=== PATIENT | male | born 1970 | race Caucasian/White ===

== ENCOUNTER 2018-04-19 16:31 | Observation (INO) | payer MEDICAID, OTHER ==
[2018-04-19] MEDS ORDERED: ONDANSETRON 4 MG/2 ML VIAL IVP ONE (16:32)
[2018-04-19] MEDS ORDERED: NS 1,000 ML IV ONE ×4 (16:32→22:16)
--- NOTE | 2018-04-19 16:49 | EDPHY ---
H & P Stated Complaint: PALACIOS, body aches, N/V/D, out of long term x 2 days ago, used meth yesterday Time Seen by Provider: 04/19/18 16:32 HPI/ROS: CHIEF COMPLAINT: Nausea, vomiting, diarrhea HISTORY OF PRESENT ILLNESS: This is a 47-year-old insulin-dependent diabetic who was released from long term 2 days ago. Since his release he has had persistent nausea, vomiting, and one bout of diarrhea. He has continued to use his insulin , in smaller doses. He tells me that he has been unable to keep much of anything down. He has some diffuse abdominal pain. He has had shaking chills and thinks that he might have had fever at home. He describes diffuse muscle aches. He has had an occasional cough over the past week, nothing persistent. He does not have sore throat. He does not feel short of breath. He is not experiencing chest pain. He has been hospitalized in the past with diabetic ketoacidosis. He denies use of IV drugs. He did use methamphetamine yesterday. REVIEW OF SYSTEMS: A ten system review of systems was performed and is negative with the exception of the items mentioned in the HPI. Past medical history: Insulin-dependent diabetes Substance abuse Past surgical history: Negative Social history: He was recently released from long term. He is currently living in an . He is accompanied by his girlfriend today. General Appearance: Alert. Vital signs reviewed. Blood pressure 146/93, heart rate 125 at triage. He intermittently falls asleep but is easily awakened and when awake he is alert and appropriate. Eyes: Pupils equal and round, bilateral conjunctival injection, no discharge. Anicteric. ENT, Mouth: Mucous membranes are slightly dry, no oropharyngeal erythema or edema. Neck: No lymphadenopathy, supple. Respiratory: Lungs are clear to auscultation; no wheezes, rales, or rhonchi. Cardiovascular: Tachycardic; no murmur, rub, or gallop. Gastrointestinal: Abdomen is soft and mildly diffusely tender, no masses or organomegaly, bowel sounds normal. Bruising on the abdomen. Skin: Warm and dry, no rashes on exposed skin, normal color. Multiple tattoos. Back: Nontender to palpation over the thoracolumbar spine. No CVAT. Extremities: No lower extremity edema, no calf tenderness or swelling. Neurological: Alert and oriented. Moving all four extremities easily and equally. Psychiatric: No agitation. Tearful during my interview. - Personal History Current Tetanus Diphtheria and Acellular Pertussis (TDAP): Yes - Medical/Surgical History Hx Asthma: No Hx Chronic Respiratory Disease: No Hx Diabetes: Yes Hx Cardiac Disease: No Hx Renal Disease: No Hx Cirrhosis: No Hx Alcoholism: No Hx HIV/AIDS: No Hx Splenectomy or Spleen Trauma: No Other PMH: Diabetic - Social History Smoking Status: Smoker current status UNK Constitutional: Initial Vital Signs Temperature (C) 37.1 C 04/19/18 16:35 Heart Rate 125 H 04/19/18 16:35 Respiratory Rate 18 04/19/18 16:35 Blood Pressure 146/93 H 04/19/18 16:35 O2 Sat (%) 96 04/19/18 16:35 O2 Delivery Mode Room Air Allergies/Adverse Reactions: No Known Allergies Allergy (Unverified 09/03/12 12:04) Home Medications: Medication Instructions Recorded Insulin Detemir [Levemir] 30 - 40 unit SQ BID 04/19/18 Insulin Lispro [Humalog] 10 - 25 units SQ TIDMEAL 04/19/18 metFORMIN HCL [Glucophage 1000 mg] 1,000 mg PO BIDMEAL 04/19/18 Medical Decision Making ED Course/Re-evaluation: 47-year-old insulin-dependent diabetic with nausea, vomiting, and diarrhea. Initial blood sugar here is 244. He has an anion gap with an elevated beta hydroxybutyrate. In the emergency department he received 2 L of IV fluid with subsequent blood sugar of 252. At this point it is unclear whether this is an early ketoacidosis or whether his vomiting and diarrhea is a GI illness, viral or bacterial. White blood cell count is elevated, just over 15,000. He is not febrile. He does not meet sepsis criteria. He has not had vomiting in the department, nor has he had diarrhea. I do not feel that he can return home until he is able to eat and drink normally and control his blood sugars. There may also be an element of withdrawal. He tells me that his only recent drug use has been methamphetamine, yesterday. He does appear to be under the influence of something. There appear to be several psychosocial issues. He and his girlfriend are quite concerned that they might lose the RV that they own and are living in. Case management was involved. Differential Diagnosis: Considered a differential diagnosis that includes but is not limited to diabetic ketoacidosis, gastroenteritis, pancreatitis, gastritis, polysubstance abuse, drug withdrawal. - Data Points Laboratory Results: Laboratory Results 04/19/18 17:20 04/19/18 17:20 04/19/18 04/19/18 04/19/18 17:45 17:20 17:20 WBC RBC Hgb POC Hgb 17.0 gm/dL gm/dL (13.7-17.5) Hct POC Hct 50 % % (40-51) MCV MCH MCHC RDW Plt Count MPV Neut % (Auto) Lymph % (Auto) Ellis % (Auto) Eos % (Auto) Baso % (Auto) Nucleat RBC Rel Count Absolute Neuts (auto) Absolute Lymphs (auto) Absolute Monos (auto) Absolute Eos (auto) Absolute Basos (auto) Absolute Nucleated RBC Immature Gran % Immature Gran # POC Sodium 139 mEq/L mEq/L (135-145) Sodium 136 mEq/L mEq/L (135-145) POC Potassium 4.1 mEq/L mEq/L (3.3-5.0) Potassium 4.6 mEq/L mEq/L (3.3-5.0) POC Chloride 99 mEq/L mEq/L (97-110) Chloride 97 mEq/L mEq/L (97-110) Carbon Dioxide 19 mEq/l L mEq/l (22-31) Anion Gap 20 mEq/L H mEq/L (8-16) POC BUN 35 mg/dL H mg/dL (7-23) BUN 36 mg/dL H mg/dL (7-23) Creatinine 0.9 mg/dL mg/dL (0.7-1.3) POC Creatinine 0.8 mg/dL mg/dL (0.7-1.3) Estimated GFR > 60 Glucose 240 mg/dL H mg/dL (70-100) POC Glucose 244 mg/dL H mg/dL (70-100) Calcium 11.9 mg/dL H mg/dL (8.5-10.4) Phosphorus 4.3 mg/dL mg/dL (2.5-4.5) Beta-Hydroxybutyrate 5.87 mmol/L H mmol/L (0.02-0.27) 04/19/18 17:20 WBC 15.93 10^3/uL H 10^3/uL (3.80-9.50) RBC 5.60 10^6/uL 10^6/uL (4.40-6.38) Hgb 16.2 g/dL g/dL (13.7-17.5) POC Hgb Hct 47.1 % % (40.0-51.0) POC Hct MCV 84.1 fL fL (81.5-99.8) MCH 28.9 pg pg (27.9-34.1) MCHC 34.4 g/dL g/dL (32.4-36.7) RDW 13.1 % % (11.5-15.2) Plt Count 335 10^3/uL 10^3/uL (150-400) MPV 9.0 fL fL (8.7-11.7) Neut % (Auto) 78.4 % H % (39.3-74.2) Lymph % (Auto) 12.6 % L % (15.0-45.0) Ellis % (Auto) 8.1 % % (4.5-13.0) Eos % (Auto) 0.0 % L % (0.6-7.6) Baso % (Auto) 0.3 % % (0.3-1.7) Nucleat RBC Rel Count 0.0 % % (0.0-0.2) Absolute Neuts (auto) 12.51 10^3/uL H 10^3/uL (1.70-6.50) Absolute Lymphs (auto) 2.00 10^3/uL 10^3/uL (1.00-3.00) Absolute Monos (auto) 1.29 10^3/uL H 10^3/uL (0.30-0.80) Absolute Eos (auto) 0.00 10^3/uL L 10^3/uL (0.03-0.40) Absolute Basos (auto) 0.04 10^3/uL 10^3/uL (0.02-0.10) Absolute Nucleated RBC 0.00 10^3/uL 10^3/uL (0-0.01) Immature Gran % 0.6 % % (0.0-1.1) Immature Gran # 0.09 10^3/uL 10^3/uL (0.00-0.10) POC Sodium Sodium POC Potassium Potassium POC Chloride Chloride Carbon Dioxide Anion Gap POC BUN BUN Creatinine POC Creatinine Estimated GFR Glucose POC Glucose Calcium Phosphorus Beta-Hydroxybutyrate Medications Given: Insulin Glargine (Lantus Syringe) 20 units SC HS JD Stop: 10/16/18 20:59 Last Admin: 04/19/18 22:08 Dose: 20 units Discontinued Medications Sodium Chloride (Ns) 1,000 mls @ 0 mls/hr IV EDNOW ONE; Wide Open PRN Reason: Protocol Stop: 04/19/18 16:33 Last Admin: 04/19/18 16:40 Dose: 1,000 mls Sodium Chloride (Ns) 1,000 mls @ 0 mls/hr IV ONCE ONE PRN Reason: Wide Open Stop: 04/19/18 17:56 Last Admin: 04/19/18 17:57 Dose: 1,000 mls Sodium Chloride (Ns) 1,000 mls @ 0 mls/hr IV EDNOW ONE; Wide Open PRN Reason: Protocol Stop: 04/19/18 19:14 Last Admin: 04/19/18 19:30 Dose: 1,000 mls Sodium Chloride (Ns) 1,000 mls @ 0 mls/hr IV ONCE ONE PRN Reason: Wide Open Stop: 04/19/18 22:17 Last Admin: 04/19/18 22:21 Dose: 1,000 mls Ondansetron HCl (Zofran) 4 mg IVP EDNOW ONE Stop: 04/19/18 16:33 Last Admin: 04/19/18 17:48 Dose: Not Given Point of Care Test Results: Chemistry 04/19/18 17:45 POC Sodium 139 mEq/L mEq/L (135-145) POC Potassium 4.1 mEq/L mEq/L (3.3-5.0) POC Chloride 99 mEq/L mEq/L (97-110) POC BUN 35 mg/dL H mg/dL (7-23) POC Creatinine 0.8 mg/dL mg/dL (0.7-1.3) POC Glucose 244 mg/dL H mg/dL (70-100) ISTAT H&H 04/19/18 17:45 POC Hgb 17.0 gm/dL gm/dL (13.7-17.5) POC Hct 50 % % (40-51) Departure - Departure Disposition: [facility] Acute Clinical Impression: Vomiting, Hyperglycemia due to type 1 diabetes mellitus Condition: Fair
[2018-04-19 17:35] LABS: PLATELET COUNT 335 10^3/uL (150-400)
--- NOTE | 2018-04-19 17:56 | ASMTCMCOM ---
CM Note CM Note Notes: This CM met with patient and his girlfriend Nuris shortly after patient's arrival to the ED. Per Dr. Rick, Nuris had expressed concerns about their RV and its current location. I provided Nuris with the phone number for [facility] and encouraged her to contact dispatch regarding the current location of their vehicle and to stay in communication with them as they are working toward having it repaired/moved. Nuris explains that patient was just released from [facility] Term 2 days ago and that they are homeless and have been living in their RV. I have discussed resources for them including [facility], [facility] shelters, and the [facility]. Both patient and Nuris deny any alcohol or drug use other than "we did a little meth yesterday". Both patient and Nuris are very pleasant. Patient is sleepy but oriented and conversant when awake. Nuris appears restless and has some "fidgety" movements of her head and jaw. She admits to having a substance abuse issue in the past but insists that "other than a little meth yesterday", she has not been using any drugs or alcohol. I have provided patient and Nuris with detailed information about the [facility], [facility], as well as [facility]. Both patient and Nuris state that they are thinking of relocating to [facility] to be closer to family. I have encouraged them to reach out to friends/family if they need assistance with this goal. I have also encouraged them to look into [facility]/ for community CM services as well Date Signed: 04/19/2018 05:55 PM Electronically Signed By:Roma Engle RN
[2018-04-19] MEDS ORDERED: ONDANSETRON DISINTEGRATING 4 MG TAB PO PRN (20:42)
[2018-04-19] MEDS ORDERED: HYDROCODONE/APAP 5/325 TAB PO PRN (20:42)
[2018-04-19] MEDS ORDERED: LORazepam 0.5 MG TAB PO PRN (20:42)
[2018-04-19] MEDS ORDERED: PROMETHAZINE HCL 25 MG/ML INJ IVP PRN (20:42)
[2018-04-19] MEDS ORDERED: ACETAMINOPHEN 325 MG TAB PO PRN (20:42)
[2018-04-19] MEDS ORDERED: LORazepam 2 MG/ML INJ IVP PRN (20:42)
[2018-04-19] MEDS ORDERED: ONDANSETRON 4 MG/2 ML VIAL IVP PRN (20:42)
[2018-04-19] MEDS ORDERED: D50W 25 GM/50 ML VIAL IVP PRN (20:44)
[2018-04-19] MEDS ORDERED: INSULIN GLARGINE 100 UNITS/ML UNIT SC SCH (21:00)
--- NOTE | 2018-04-19 22:51 | GHP ---
DATE OF ADMISSION: 04/19/2018 CHIEF COMPLAINT: Nausea, vomiting. HISTORY: This is a 47-year-old, insulin-dependent male who was [facility] with complaints of persistent nausea, vomiting, and diarrhea over the last 24 hours. The patient notes that he has continued to use his usual insulin dose but despite that has continued to have per sistent nausea, vomiting. He is accompanied by his girlfriend who is very anxious and notes that the y are currently living in an RV and that there has been a lot of stress in their lives recently due t o his getting out of [facility] and concerns that the RV might get repossessed. The patient does admit to having recently used methamphetamine and has a history of IV drug use. At the time of my evaluation, he is somewhat somnolent and tangential and appears to be perhaps acutely intoxicated. PAST MEDICAL HISTORY: Includes: 1. Insulin-dependent diabetes. 2. Polysubstance abuse, including IV drug use. PAST SURGICAL HISTORY: Denies. SOCIAL HISTORY: Patient recently released from [facility]. He is currently living in an RV. He is accomp anied by his girlfriend. FAMILY HISTORY: This was reviewed and noncontributory. REVIEW OF SYSTEMS: 10-point review of systems obtained, negative except as per HPI. HOME MEDICATIONS: 1. Metformin. 2. Insulin lispro. 3. Insulin detemir. ALLERGIES: No known drug allergies. PHYSICAL EXAM: VITAL SIGNS: BP 144/81, heart rate 120, respiratory rate 16, O2 sats 94% on room air , temperature is 37.3. GENERAL APPEARANCE: This is a disheveled male. He is awake and alert. He i s in no acute distress. EYES: Anicteric. Pupils are pinpoint, equal, reactive. HEENT: Dry mucous membranes. CARDIOVASCULAR: Tachy, regular. No MRG. PULMONARY: CTA bilaterally. ABDOMEN: Soft, nontender. Positive bowel sounds. EXTREMITIES: No clubbing, cyanosis, or edema. SKIN: Warm, dry , well perfused. NEURO/PSYCH: Patient is somnolent but awake and alert. He is tangential and somew hat agitated intermittently, consistent with likely acute intoxication. CLINICAL DATA: Labs reviewed and notable for white blood cell count of 15.9, hematocrit of 47. Chem istry is notable for a bicarb of 15, anion gap of 18, BUN of 30, glucose of 211. He has a hemoglobin A1c of 9.9. ASSESSMENT/PLAN: This is a 47-year-old insulin-dependent man recently released from [facility], presenting with nausea, vomiting, diarrhea, and recent methamphetamine use and suspect acute intoxication. 1. Nausea, vomiting, diarrhea: Uncertain etiology. Query if this is related to drug use or a viral gastroenteritis. It does appear to be improving. Plan is to hydrate and to monitor overnight. Tessa uld diarrhea recur, we will send a gastrointestinal pathogen panel but suspect this is likely non inf ectious. 2. Hyperglycemia: He does have an elevated anion gap but no evidence at this point of diabetic keto acidosis. We will treat with intravenous fluids and insulin sliding scale and insulin glargine. We will recheck a basic metabolic profile to be sure his gap is closing. 3. Acute encephalopathy: Again, suspect this is related to acute intoxication. Patient does have i ntermittent agitation and somnolence consistent with intoxication. Does admit to recent meth use. D rug screen has been ordered and is pending. Will monitor overnight. 4. Observation status: Suspect patient will require less than 48-hour stay for evaluation and manag ement of above. 5. Patient is new to my care. Old records reviewed, summarized as per HPI and past medical history. Care plan reviewed with ER physician including plans for hydration and overnight observation. /[id number]/MODL
[2018-04-19] MEDS: NS 1,000 ML IV SCH (23:29)
[2018-04-20 06:12] LABS: PLATELET COUNT 300 10^3/uL (150-400)
[2018-04-20] MEDS: NS 1,000 ML IV SCH (08:55)
[2018-04-20] MEDS: INSULIN LISPRO 100 UNIT/ML SC SCH ×2 (10:46→11:34)
--- NOTE | 2018-04-20 13:01 | HOSPPROG ---
Hospitalist Progress Note Assessment/Plan: 47 yo M w dm here w likely viral gastroenteritis viral gastroenteritis: now tolerating orals no diarrhea ?dka: has NON GAP acidosis from saline resuscitation not tachypneic took long acting insulin last nando dispo: home today Subjective: ate breakfast and lunch Objective: Vital Signs Temp Pulse Resp BP Pulse Ox 36.7 C 101 H 16 135/59 H 94 04/20/18 12:00 04/20/18 12:00 04/20/18 12:00 04/20/18 12:00 04/20/18 12:00 Laboratory Results 04/20/18 05:43 04/20/18 05:43 04/19/18 04/20/18 04/21/18 05:59 05:59 05:59 Intake Total 1500 Output Total 1000 Balance 500 - Physical Exam Constitutional: no apparent distress, appears nourished Eyes: PERRL, anicteric sclera Ears, Nose, Mouth, Throat: moist mucous membranes, hearing normal Cardiovascular: regular rate and rhythym, no murmur, rub, or gallop, No tachycardia Respiratory: no respiratory distress, no rales or rhonchi Gastrointestinal: normoactive bowel sounds, soft, non-tender abdomen, No guarding, No rebound Genitourinary: No guzman in urethra Skin: warm, normal color Musculoskeletal: full muscle strength Neurologic: AAOx3 Psychiatric: interacting appropriately Lymph, Heme, Immunologic: no cervical LAD ICD10 Worksheet Patient Problems: Problems Problem Status Onset Hyperglycemia due to type 1 diabetes mellitus Acute Vomiting Acute
--- NOTE | 2018-04-20 13:29 | GDS ---
DISCHARGE DIAGNOSES: 1. Viral gastroenteritis. 2. Diabetes. 3. Nausea and vomiting. 4. Hyperglycemia. Please see admission history and physical by Dr. Aldair Fournier. The patient presented with nausea and vomiting, inability to tolerate p.o. He received IV fluids, IV antiemetics. With improvement in his symptoms, he did have a leukocytosis. He and his girlfriend attribute this to steve Stephenson gh it is worth noting that there is a viral infection going around. The patient did have an elevated beta hydroxybutyrate on presentation and a mild anion gap acidosis. This is felt more consistent with starvation ketosis than DKA. He did not receive IV insulin. His anion gap actually closed. He received long-acting insulin. He is not tachypneic. His bicarb is 16 this morning, and it is non gap secondary to saline resuscitatio n. The patient is discharged home, to continue his insulin therapy. He is given a prescription for Phen ergan. /[id number]/MODL
[2018-04-20 15:36] VITALS: BP 145/83
== END 2018-04-20 16:04 | disposition home or self-care (01) ==
LOC: EDUNIT# → F3E 20:08
PROVIDERS: ADMIT Internal Medicine; ATTEND Internal Medicine
DX: A08.4 Viral intestinal infection, unspecified (principal); E11.9 Type 2 diabetes mellitus without complications
CPT/HCPCS: 96360; 96361; 96372; 99285; G0378; 80307; 82435-PO; 82565-PO; 82947-PO; 84132-PO; 84295-PO; 84520-PO; 85014-PO; G0480; J1815

== ENCOUNTER 2018-04-22 00:12 | Inpatient (IN) | payer MEDICAID ==
--- NOTE | 2018-04-22 00:18 | EDPHY ---
H & P Time Seen by Provider: 04/22/18 00:18 HPI/ROS: HPI CHIEF COMPLAINT: Nausea vomiting. HISTORY OF PRESENT ILLNESS: Patient is a 47-year-old male, presents emergency room by EMS with nausea vomiting. Patient was recently admitted to the hospital for viral gastroenteritis. Patient presents back to the emergency room with nausea vomiting. He states he is unable to tolerate p.o.. Patient denies any chest pain or shortness of breath. He does complain of diffuse body pain. He states he has been unable to keep anything down.. Of note patient moaning. Refuses to answer most questions. History and review systems limited to this. Past Medical History: Diabetes, insulin-dependent recent admission for viral gastroenteritis, recent for admission for nausea vomiting Past Surgical History: Denies recent surgery Social History: Possible methamphetamine. Family History: Noncontributory. ROS REVIEW OF SYSTEMS: Of note patient moaning. Refuses to answer most questions. History review systems limited to this. Exam Constitutional nontoxic, moaning, triage nursing summary reviewed, vital signs reviewed, awake/alert. Eyes normal conjunctivae and sclera, EOMI, PERRLA. HENT normal inspection, atraumatic, moist mucus membranes, no epistaxis, neck supple/ no meningismus, no raccoon eyes. Respiratory clear to auscultation bilaterally, normal breath sounds, no respiratory distress, no wheezing. Cardiovascular rate normal, regular rhythm, no murmur, no edema, distal pulses normal. Gastrointestinal soft, non-tender, no rebound, no guarding, normal bowel sounds, no distension, no pulsatile mass. Genitourinary no CVA tenderness. Musculoskeletal no midline vertebral tenderness, full range of motion, no calf swelling, no tenderness of extremities, no meningismus, good pulses, neurovascularly intact. Skin pink, warm, & dry, no rash, skin atraumatic. Neurologic awake, alert and oriented x 3, AAOx3, moves all 4 extremities equally, motor intact, sensory intact, CN II-XII intact, normal cerebellar, normal vision, normal speech. Psychiatric normal mood/affect. Heme/Lymph/Immune no lymphadenopathy. Differential Diagnosis: Includes but is not limited to in a particular order dehydration, electrolyte disturbance, DKA, infection, bowel obstruction, viral gastroenteritis, electrolyte disturbance. Medical Decision Making: Plan for this patient IV establishment IV fluid bolus , full core piler EKG, troponin, abdominal blood work, Zofran for nausea and re-evaluate. Drug screen. Re-evaluation: EKG interpretation by me on record in IMVU system. Impression time of EKG 004, sinus tach 126, peaked T-waves present. Early re-mariluz pattern. Patient's lab results resulted. Patient is in DKA with a critical acidosis. Elevated blood glucose. Ketones in the urine. Patient started on the DKA protocol. Potassium noted. This should shift with insulin. Patient received 2 L of fluid here in emergency room. Chest x-ray and KUB pending. Hospitalist service consult for admission to the ICU. Dr. Mullins Accepts. Critical Care: Total Critical Care Time Spent Managing this Patient: 65 Minutes. This time was spent Exclusively with this patient. This Care was exclusive of procedures. The Organ System/life at risk was acidosis, DKA This Patient was in Critical Condition because DKA Source: Patient, EMS - Medical/Surgical History Hx Asthma: No Hx Chronic Respiratory Disease: No Hx Diabetes: Yes Hx Cardiac Disease: No Hx Renal Disease: No Hx Cirrhosis: No Hx Alcoholism: No Hx HIV/AIDS: No Hx Splenectomy or Spleen Trauma: No Other PMH: Diabetic - Social History Smoking Status: Smoker current status UNK Constitutional: Initial Vital Signs Temperature (C) 36.7 C 04/22/18 00:30 Heart Rate 125 H 04/22/18 00:30 Respiratory Rate 22 H 04/22/18 00:30 Blood Pressure 157/104 H 04/22/18 00:30 O2 Sat (%) 98 04/22/18 00:30 O2 Delivery Mode Room Air Allergies/Adverse Reactions: No Known Allergies Allergy (Unverified 04/22/18 00:29) Home Medications: Medication Instructions Recorded Insulin Detemir [Levemir] 30 - 40 unit SQ BID 04/19/18 Insulin Lispro [Humalog] 10 - 25 units SQ TIDMEAL 04/19/18 metFORMIN HCL [Glucophage 1000 mg] 1,000 mg PO BIDMEAL 04/19/18 Promethazine HCl [Phenergan 12.5mg 12.5 mg PO Q6 PRN #10 tablet 04/20/18 tab] Medical Decision Making - Data Points Laboratory Results: Laboratory Results 04/22/18 00:54 04/22/18 00:54 Medications Given: Enoxaparin Sodium (Lovenox) 40 mg SC DAILY JD Stop: 10/19/18 08:59 Last Admin: 04/22/18 11:24 Dose: 40 mg Insulin Human Regular 100 unit (/ Sodium Chloride) 101 mls @ 0 mls/hr IV AD JD ; Per Protocol PRN Reason: Protocol Stop: 10/19/18 01:59 Last Admin: 04/22/18 20:36 Dose: 101 mls Dextrose (D10w) 1,000 mls @ 0 mls/hr IV AD JD; Per Protocol PRN Reason: Protocol Stop: 10/19/18 01:59 Last Admin: 04/22/18 17:25 Dose: 1,000 mls Sodium Chloride (Ns) 1,000 mls @ 150 mls/hr IV CONT JD Stop: 10/19/18 10:14 Last Admin: 04/22/18 20:37 Dose: 1,000 mls Pantoprazole Sodium (Protonix) 40 mg IVP DAILY JD Stop: 10/19/18 14:44 Last Admin: 04/22/18 14:57 Dose: 40 mg Discontinued Medications Sodium Chloride (Ns) 1,000 mls @ 0 mls/hr IV EDNOW ONE; Wide Open PRN Reason: Protocol Stop: 04/22/18 00:24 Last Admin: 04/22/18 00:39 Dose: 1,000 mls Sodium Chloride (Ns) 1,000 mls @ 0 mls/hr IV ONCE ONE PRN Reason: Wide Open Stop: 04/22/18 01:13 Last Admin: 04/22/18 01:57 Dose: 1,000 mls Insulin Human Regular 100 unit / Miscellaneous Medication 1 ea/ Sodium Chloride 101 mls @ 0 mls/hr IV EDNOW ONE; Per Protocol PRN Reason: Protocol Stop: 04/22/18 01:26 Last Admin: 04/22/18 01:54 Dose: 101 mls Sodium Chloride (Ns) 1,000 mls @ 1,000 mls/hr IV ONCE ONE Stop: 04/22/18 02:59 Last Admin: 04/22/18 05:04 Dose: 1,000 mls Sodium Chloride (Ns) 500 mls @ 500 mls/hr IV ONCE ONE Stop: 04/22/18 03:59 Last Admin: 04/22/18 03:00 Dose: 500 mls Sodium Chloride (Ns) 500 mls @ 500 mls/hr IV ONCE ONE Stop: 04/22/18 04:59 Last Admin: 04/22/18 04:00 Dose: 500 mls Sodium Chloride (Ns) 1,000 mls @ 150 mls/hr IV CONT JD Stop: 10/19/18 04:14 Last Admin: 04/22/18 05:11 Dose: 1,000 mls Sodium Chloride (Ns) 1,000 mls @ 6,000 mls/hr IV ONCE ONE Stop: 04/22/18 14:37 Last Admin: 04/22/18 14:38 Dose: 1,000 mls Potassium Chloride (Potassium Cl 10 Meq (Premix)) 50 mls @ 100 mls/hr IV Q30M JD Stop: 04/22/18 21:14 Last Admin: 04/22/18 21:01 Dose: 50 mls Influenza Virus Vaccine Quadrival (Flulaval Quad [id number] (6mo+)) 0.5 ml IM .ONCE ONE Stop: 04/22/18 09:29 Last Admin: 04/22/18 12:32 Dose: Not Given Ondansetron HCl (Zofran) 4 mg IVP EDNOW ONE Stop: 04/22/18 00:25 Last Admin: 04/22/18 00:39 Dose: 4 mg Pneumococcal Polyvalent Vaccine (Pneumovax 23) 0.5 ml IM .ONCE ONE Stop: 04/22/18 09:29 Last Admin: 04/22/18 12:32 Dose: Not Given Point of Care Test Results: Chemistry 04/22/18 01:10 POC Troponin I 0.00 ng/mL ng/mL (0.00-0.08) Departure - Departure Disposition: [facility] Acute Clinical Impression: DKA (diabetic ketoacidoses) Qualifiers: Diabetes mellitus type: type 1 Diabetes mellitus complication detail: without coma Qualified Code(s): E10.10 - Type 1 diabetes mellitus with ketoacidosis without coma Condition: Critical
[2018-04-22] MEDS ORDERED: NS 1,000 ML IV ONE ×4 (00:23→14:28)
[2018-04-22] MEDS ORDERED: ONDANSETRON 4 MG/2 ML VIAL IVP ONE (00:24)
[2018-04-22 01:12] LABS: PLATELET COUNT 463 10^3/uL (150-400)
[2018-04-22 01:18] LABS: INR 1.21 (0.83-1.16); PROTIME(PATIENT) 15.5 SEC (12.0-15.0)
[2018-04-22] MEDS ORDERED: INSULIN REGULAR HUMAN 100 UNIT, COSIGN. REQUIRED 1 EA in NS 100 ML IV ONE (01:25)
[2018-04-22] MEDS ORDERED: ACETAMINOPHEN 325 MG TAB PO PRN (01:35)
[2018-04-22] MEDS ORDERED: ONDANSETRON 4 MG/2 ML VIAL IVP PRN (01:35)
[2018-04-22] MEDS ORDERED: ONDANSETRON DISINTEGRATING 4 MG TAB PO PRN (01:35)
[2018-04-22] MEDS ORDERED: IOPAMIDOL (ISOVUE-300) 100 ML BTL ONE (01:53)
[2018-04-22] MEDS ORDERED: D50W 25 GM/50 ML SYR IVP PRN (02:00)
[2018-04-22] MEDS ORDERED: D50W 25 GM/50 ML VIAL IVP PRN (02:00)
--- NOTE | 2018-04-22 02:21 | PDGENHP ---
History and Physical - Chief Complaint Nausea, vomiting - History of Present Illness 47 yo M w/ IDDM presents with nausea and vomiting. Patient was recently admitted to the hospital for viral gastroenteritis. Per ED physician he has not been able to tolerate PO. During my evaluation the patient will not answer any questions and is mostly moaning in pain. Evaluation in the ED notable for DKA with undetectable HCO3. I am unable to ascertain whether patient has been taking his insulin to lack of cooperation with history. Case discussed with ED physician Dr. Younger; records reviewed in EMR. History Information - Allergies/Home Medication List Allergies/Adverse Reactions: No Known Allergies Allergy (Unverified 04/22/18 00:29) Home Medications: Insulin Detemir [Levemir] 30 - 40 unit SQ BID 04/19/18 [Last Taken Unknown] Insulin Lispro [Humalog] 10 - 25 units SQ TIDMEAL 04/19/18 [Last Taken Unknown] metFORMIN HCL [Glucophage 1000 mg] 1,000 mg PO BIDMEAL 04/19/18 [Last Taken Unknown] I have personally reviewed and updated: family history, medical history - Past Medical History diabetes type 2 - Surgical History Additional surgical history: Unable to obtain 2/2 AMS - Family History Additional family history: Unable to obtain 2/2 AMS - Social History Smoking Status: Smoker current status UNK Review of Systems Review of Systems: Unable to obtain 2/2 AMS Physical Exam Physical Exam: Temp Pulse Resp BP Pulse Ox 36.8 C 122 H 18 122/95 H 98 04/22/18 02:00 04/22/18 02:00 04/22/18 02:00 04/22/18 02:00 04/22/18 02:00 Constitutional: uncomfortable, unkempt Eyes: PERRL, anicteric sclera Ears, Nose, Mouth, Throat: moist mucous membranes, no oral mucosal ulcers Cardiovascular: no murmur, rub, or gallop, tachycardia Respiratory: no respiratory distress, clear to auscultation Gastrointestinal: No guarding, No rebound, No distension Skin: warm, normal color Neurologic: other (Moaning in pain, not answering questions) Lab Data & Imaging Review 04/22/18 00:54 04/22/18 00:54 WBC 21.64 10^3/uL (3.80-9.50) H 10/13/18 00:54 RBC 5.30 10^6/uL (4.40-6.38) 04/22/18 00:54 Hgb 15.5 g/dL (13.7-17.5) 04/22/18 00:54 POC Hgb 15.6 gm/dL (13.7-17.5) 04/22/18 02:00 Hct 46.4 % (40.0-51.0) 04/22/18 00:54 POC Hct 46 % (40-51) 04/22/18 02:00 MCV 87.5 fL (81.5-99.8) 04/22/18 00:54 MCH 29.2 pg (27.9-34.1) 04/22/18 00:54 MCHC 33.4 g/dL (32.4-36.7) 04/22/18 00:54 RDW 12.7 % (11.5-15.2) 04/22/18 00:54 Plt Count 463 10^3/uL (150-400) H 04/22/18 00:54 MPV 9.5 fL (8.7-11.7) 04/22/18 00:54 Neut % (Auto) 88.2 % (39.3-74.2) H 04/22/18 00:54 Lymph % (Auto) 4.5 % (15.0-45.0) L 04/22/18 00:54 Cass % (Auto) 5.9 % (4.5-13.0) 04/22/18 00:54 Eos % (Auto) 0.0 % (0.6-7.6) L 04/22/18 00:54 Baso % (Auto) 0.3 % (0.3-1.7) 04/22/18 00:54 Nucleat RBC Rel Count 0.0 % (0.0-0.2) 04/22/18 00:54 Absolute Neuts (auto) 19.09 10^3/uL (1.70-6.50) H 04/22/18 00:54 Absolute Lymphs (auto) 0.98 10^3/uL (1.00-3.00) L 04/22/18 00:54 Absolute Monos (auto) 1.27 10^3/uL (0.30-0.80) H 04/22/18 00:54 Absolute Eos (auto) 0.01 10^3/uL (0.03-0.40) L 04/22/18 00:54 Absolute Basos (auto) 0.06 10^3/uL (0.02-0.10) 04/22/18 00:54 Absolute Nucleated RBC 0.00 10^3/uL (0-0.01) 04/22/18 00:54 Immature Gran % 1.1 % (0.0-1.1) 04/22/18 00:54 Immature Gran # 0.23 10^3/uL (0.00-0.10) H 04/22/18 00:54 PT 15.5 SEC (12.0-15.0) H 04/22/18 00:54 INR 1.21 (0.83-1.16) H 04/22/18 00:54 APTT 21.4 SEC (23.0-38.0) L 04/22/18 00:54 Puncture Site VENOUS 04/22/18 01:55 Patient Temperature 37.0 DEGREES 04/22/18 01:55 pCO2 11 mmHg (34-38) L* 04/22/18 00:40 pO2 103 mmHg (65-75) H 04/22/18 00:40 Total CO2 4 mEq/L (23-27) L* 04/22/18 00:40 ABG pH 7.15 (7.35-7.45) L* 04/22/18 00:40 ABG PO2/FiO2 Ratio 108 RATIO 04/22/18 00:40 ABG HCO3 4 mEq/L (22-26) L 04/22/18 00:40 ABG O2 Saturation 97 % (92-95) H 04/22/18 00:40 ABG Base Excess -25.4 mEq/L (-2.5-2.5) L 04/22/18 00:40 VBG pH 7.08 (7.31-7.42) L 04/22/18 01:55 VBG HCO3 4 mEQ/L (22-26) L 04/22/18 01:55 VBG Total CO2 5 mEq/L (21-27) L 04/22/18 01:55 VBG O2 Saturation 98 % (65-75) H 04/22/18 01:55 VBG Base Excess -25.7 mEq/L (-2.5-2.5) L 04/22/18 01:55 VBG Lactic Acid 1.6 mmol/L (0.7-2.1) 04/22/18 00:54 Mixed VBG pCO2 15 mmHg (40-44) L 04/22/18 01:55 Mixed VBG pO2 151 mmHG (35-40) H 04/22/18 01:55 O2 Concentration % 98 % (0-100) 04/22/18 00:40 POC Sodium 130 mEq/L (135-145) L 04/22/18 02:00 Sodium 131 mEq/L (135-145) L 04/22/18 00:54 POC Potassium 6.1 mEq/L (3.3-5.0) H 04/22/18 02:00 Potassium 6.0 mEq/L (3.3-5.0) H 04/22/18 00:54 POC Chloride 107 mEq/L (97-110) 04/22/18 02:00 Chloride 104 mEq/L (97-110) 04/22/18 00:54 Carbon Dioxide < 5 mEq/l (22-31) L* 04/22/18 00:54 Anion Gap TNP 04/22/18 00:54 POC BUN 41 mg/dL (7-23) H 04/22/18 02:00 BUN 34 mg/dL (7-23) H 04/22/18 00:54 Creatinine 1.2 mg/dL (0.7-1.3) 04/22/18 00:54 POC Creatinine 0.8 mg/dL (0.7-1.3) 04/22/18 02:00 Estimated GFR > 60 04/22/18 00:54 Glucose 493 mg/dL (70-100) H 04/22/18 00:54 POC Glucose 517 mg/dL (70-100) H* 04/22/18 02:00 Calcium 10.8 mg/dL (8.5-10.4) H 04/22/18 00:54 Magnesium 2.3 mg/dL (1.6-2.3) 04/22/18 00:54 Total Bilirubin 0.7 mg/dL (0.1-1.4) 04/22/18 00:54 Conjugated Bilirubin 0.3 mg/dL (0.0-0.5) 04/22/18 00:54 Unconjugated Bilirubin 0.4 mg/dL (0.0-1.1) 04/22/18 00:54 AST 11 IU/L (17-59) L 04/22/18 00:54 ALT 32 IU/L (21-72) 04/22/18 00:54 Alkaline Phosphatase 76 IU/L (38-126) 04/22/18 00:54 POC Troponin I 0.00 ng/mL (0.00-0.08) 04/22/18 01:10 Total Protein 5.9 g/dL (6.3-8.2) L 04/22/18 00:54 Albumin 3.6 g/dL (3.5-5.0) 04/22/18 00:54 Lipase 231 IU/L (23-300) 04/22/18 00:54 Urine Color PALE YELLOW 04/22/18 01:00 Urine Appearance CLEAR 04/22/18 01:00 Urine pH 5.0 (5.0-7.5) 04/22/18 01:00 Ur Specific [place] 1.023 (1.002-1.030) 04/22/18 01:00 Urine Protein NEGATIVE (NEGATIVE) 04/22/18 01:00 Urine Ketones 2+ (NEGATIVE) H 04/22/18 01:00 Urine Blood 1+ (NEGATIVE) H 04/22/18 01:00 Urine Nitrate NEGATIVE (NEGATIVE) 04/22/18 01:00 Urine Bilirubin NEGATIVE (NEGATIVE) 04/22/18 01:00 Urine Urobilinogen NEGATIVE EU (0.2-1.0) 04/22/18 01:00 Ur Leukocyte Esterase NEGATIVE (NEGATIVE) 04/22/18 01:00 Urine RBC 1-3 /hpf (0-3) 04/22/18 01:00 Urine WBC 1-3 /hpf (0-3) 04/22/18 01:00 Ur Epithelial Cells NONE SEEN /lpf (NONE-1+) 04/22/18 01:00 Urine Mucus TRACE /lpf (NONE-1+) 04/22/18 01:00 Urine Glucose 3+ (NEGATIVE) H 04/22/18 01:00 Urine Opiates Screen NEGATIVE (NEGATIVE) 04/22/18 01:00 Urine Barbiturates NEGATIVE (NEGATIVE) 04/22/18 01:00 Ur Phencyclidine Scrn NEGATIVE (NEGATIVE) 04/22/18 01:00 Ur Amphetamine Screen NEGATIVE (NEGATIVE) 04/22/18 01:00 U Benzodiazepines Scrn NEGATIVE (NEGATIVE) 04/22/18 01:00 Urine Cocaine Screen NEGATIVE (NEGATIVE) 04/22/18 01:00 U Marijuana (THC) Screen NEGATIVE (NEGATIVE) 04/22/18 01:00 Ethyl Alcohol < 10 mg/dL (0-10) 04/22/18 00:54 Visualized and Interpreted Chest x-ray results: Yes Chest X-Ray results: no infiltrate Assessment & Plan Assessment: 47 yo M w/ IDDM presents with DKA. Plan: 1. IDDM c/b DKA - DKA evidenced by AG >20, pH 7.15, and undetectable HCO3 on admission. Trigger for this is difficult to ascertain as I was not able to obtain a history from the patient due to altered mental status. - Admit to ICU for DKA protocol - CT of the abdomen to rule out intra-abdominal pathology noting recent admission and presenting complaint of nausea/vomiting 2. Acidosis - 2/2 DKA, pH 7.15 on admission, - DKA protocol 3. Hyperkalemia - 2/2 acidosis, should resolve with treatment of DKA. 4. Leukocytosis - May be reactive to DKA. Will obtain CT abdomen to rule out acute intra-abdominal pathology. 5. Acute metabolic encephalopathy - Likely multifactorial from acidosis, hyperglycemia, and dehydration. Diet - NPO Code - Full Ppx - LMWH Dispo - Admit under observation status
[2018-04-22] MEDS ORDERED: NS 500 ML IV ONE ×2 (03:00→04:00)
[2018-04-22] MEDS ORDERED: NS 1,000 ML IV SCH (04:15)
[2018-04-22] MEDS: D10W 1,000 ML IV SCH ×3 (07:27→23:30)
[2018-04-22 07:57] LABS: PLATELET COUNT 427 10^3/uL (150-400)
--- NOTE | 2018-04-22 08:20 | CPEKG ---
Test Reason : OPEN Blood Pressure : / mmHG Vent. Rate : 126 BPM Atrial Rate : 126 BPM P-R Int : 152 ms QRS Dur : 088 ms QT Int : 328 ms P-R-T Axes : 080 099 060 degrees QTc Int : 475 ms Sinus tachycardia Probable left atrial enlargement Borderline right axis deviation ST elev, probable normal early repol pattern Confirmed by Romero Benavidez ([id number]) on 04/22/2018 8:19:42 AM Referred By: Confirmed By:Romero Benavidez
[2018-04-22] MEDS ORDERED: PNEUMOCOCCAL 0.5ML VACCINE VIAL IM ONE (09:28)
[2018-04-22] MEDS: ENOXAPARIN 40 MG/0.4 ML SYR SC SCH (11:24)
[2018-04-22] MEDS: INSULIN REGULAR HUMAN 100 UNIT in NS 100 ML IV SCH ×2 (12:08→20:36)
[2018-04-22] MEDS ORDERED: ALTEPLASE 2 MG VIAL IVP PRN (13:37)
[2018-04-22] MEDS: NS 1,000 ML IV SCH ×2 (13:52→20:37)
[2018-04-22] MEDS ORDERED: PROTOCOL POTASSIUM 1 DOSE MISC PRN (14:40)
[2018-04-22] MEDS: PANTOPRAZOLE SODIUM 40 MG VIAL IVP SCH (14:57)
--- NOTE | 2018-04-22 15:00 | HOSPPROG ---
Hospitalist Progress Note Assessment/Plan: Subjective Follow-up on acute acidosis. No acute events overnight. Patient's nurse did report that is with her rate has been steadily above 120s. We reviewed his telemetry together in appears to be sinus tachycardia. Patient is arousable and will answer simple questions but not conversant still rather fatigued. Objective Vitals as detailed below Exam General-sedate but arousable Heart-tachycardic, regular rate and rhythm no murmurs Lungs-Clear to auscultation with normal respiratory effort Abdomen-soft nontender nondistended normal bowel sounds -no Maldonado catheter in place Extremities-no significant pitting edema or calf pain with palpation Skin-no concerning skin rashes noted Labs as detailed below Assessment and plan Diabetic ketoacidosis-improving. Serum bicarb previously undetectable has increased to 9. Beta hydroxybutyrate has decreased from 8-4. Continue insulin per protocol. Continue IV fluids. Continue labs every 4-6 hours. Hyperkalemia-resolved with potassium at 4.3 this afternoon. Leukocytosis-currently afebrile without any obvious infectious source. 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 Leukocytosis may be reactive from the acidosis. Continue to trend and monitor for fevers. Patient is not currently on any antibiotic therapy Encephalopathy-continue to monitor with treatment of underlying acidosis. Hypercalcemia-improving. Down to 10.1 from 10.8 yesterday. Diabetes mellitus type 1-uncertain compliance to insulin. Will check a hemoglobin A1c if not recently done. DVT prophylaxis-Lovenox. Disposition-patient is needing ongoing ICU level of care. Objective: Vital Signs Temp Pulse Resp BP Pulse Ox 37.4 C 133 H 20 118/61 96 04/22/18 14:00 04/22/18 14:16 04/22/18 14:16 04/22/18 14:16 04/22/18 14:16 Laboratory Results 04/22/18 07:45 04/22/18 13:45 04/21/18 04/22/18 04/23/18 05:59 05:59 05:59 Intake Total 3300 Output Total 2450 750 Balance 850 -750 PT 15.5 SEC (12.0-15.0) H 04/22/18 00:54 INR 1.21 (0.83-1.16) H 04/22/18 00:54 ICD10 Worksheet Patient Problems: Problems Problem Status Onset DKA (diabetic ketoacidoses) Acute Hyperglycemia due to type 1 diabetes mellitus Acute Vomiting Acute
--- NOTE | 2018-04-22 15:25 | ASMTCMCOM ---
CM Note CM Note Notes: Pt's chart reviewed for d/c planning. Pt is a 47y/o male who was brought into the ED due to nausea and vomitting. The pt has insulin dependent diabetes and was in ketoacidosis. He was unable to respond to questions in the ED and can now provide answers to simple questions; he is still quite fatigued. Pt was in the hospital earlier in the week due to viral gastroenteritis. At that time his gf, Nuris, met with CM and shared that pt had just been relaeased from prison 2 days earlier and that they had been living in a RV. They had used meth the day prior. CM gave him multiple resources for the nursing home and coordinated entry. D/C will most likely be to pt's RV, the nursing home or the streets. CM to follow. D/C Plan: Anticipate pt's RV, nursing home, streets. Date Signed: 04/22/2018 03:24 PM Electronically Signed By:Riya Quan
--- NOTE | 2018-04-22 16:00 | GCON ---
PULMONARY/CRITICAL CARE CONSULTATION DATE OF CONSULTATION: 04/22/2018 REFERRING PHYSICIAN: Keron Mullins MD REASON FOR REFERRAL: Evaluation and management of DKA with nausea and vomiting. The patient is a 47-year-old male with a history of insulin-dependent diabetes who was recently admitted to the hospital for viral gastroenteritis. Apparently , he was discharged, but has been unable to take p.o. The patient upon presentation to the emergency department the patient was apparently quite obtunded and has remained so. He was found to be in DKA and has been started on protocol. He is currently minimally responsive. PAST MEDICAL HISTORY: Diabetes. MEDICATIONS: Include Levemir, Humalog, Metformin. ALLERGIES: None. SOCIAL HISTORY: The patient is a smoker. Otherwise unknown. FAMILY HISTORY: Unobtainable. REVIEW OF SYSTEMS: Unobtainable due to mental status. PHYSICAL EXAMINATION: GENERAL: The patient is obtunded. He moans to noxious stimuli, but does not answer questions. VITAL SIGNS: Blood pressure is 118/61 with a heart rate of 133. He is afebrile. Oxygen saturations are 96% on room air. HEENT: Normocephalic and atraumatic. No icterus. NECK: No adenopathy. No JVD. Trachea is midline. CHEST: Clear to auscultation. CARDIAC: Regular tachycardia without murmur. ABDOMEN: Soft, nontender. Bowel sounds are present. EXTREMITIES: No clubbing, cyanosis, or edema. NEURO: The patient is obtunded. He moves all extremities to noxious stimuli. LAB: Chemistry group drawn an hour ago shows sodium 137. A BUN is 43 with a creatinine of 0.7. Creatinine is down from 1.2. Bicarbonate is 14, up from 4 and an anion gap is 10, down from 23. Glucose is 189, down from 493. Beta hydroxybutyrate was 4.3, down from 8.9. White blood count is 22.4. Hemoglobin is 14.3. An arterial blood gas shows a pH of 7.29, up from 7.15 at admission ( fell to 7.08 after that). A toxicology screen is unremarkable. An abdominal CT scan shows gastroesophagitis and proximal duodenitis with hepatic steatosis. Images reviewed by me. Chest x-ray is unremarkable. Images reviewed by me. ASSESSMENT: 1. Diabetic ketoacidosis. The patient has improved metabolically with insulin and intravenous fluids. He is also currently on D10 due to his n.p.o. status. 2. Obtundation. This is likely due to the patient's diabetic ketoacidosis. As he is starting to improve, I expect his mental status to improve. 3. Esophageal gastroenteritis. This is likely the cause of the patient's acute illness, with difficulty taking p.o. He has some gastric distention. RECOMMENDATIONS: 1. I gave the patient some more IV fluids to help his metabolic recovery. He will continue on the DKA protocol. 2. Start pantoprazole. 3. Consider NG tube once the patient wakes up if he is having vomiting or abdominal discomfort that could benefit from decompression. /[id number]/MODL MTDD
--- NOTE | 2018-04-22 16:26 | PDRADPN ---
Radiology Procedure Note Date of Procedure: 04/22/18 Radiologist: Lesley Parker Anesthesia: Local (Specify) (lidocaine) Pre-op Diagnosis: AKA Post-op Diagnosis: SAME Indication: NEEDS IV ACCESS AND BLOOD DRAWS Procedure: bed side triple lumen IJ catheter placement Finding(s): Catheter in SVC. No Ptx. Ready for immediate use. Inf/Abcess present in the surg proc area at time of surgery?: No
[2018-04-22] MEDS: POTASSIUM Cl (KCl) 50 ML IV SCH ×3 (20:27→21:01)
[2018-04-23] MEDS: POTASSIUM Cl (KCl) 50 ML IV SCH ×9 (01:23→19:40)
[2018-04-23] MEDS: NS 1,000 ML IV SCH ×2 (02:44→19:33)
[2018-04-23] MEDS: D10W 1,000 ML IV SCH (04:39)
[2018-04-23] MEDS ORDERED: D50W 25 GM/50 ML SYR IVP PRN (08:37)
[2018-04-23] MEDS ORDERED: POTASSIUM Cl (KCl) 20 MEQ/50 ML BAG IV ONE (09:24)
[2018-04-23] MEDS: PANTOPRAZOLE SODIUM 40 MG VIAL IVP SCH ×2 (09:29→19:33)
[2018-04-23] MEDS: ENOXAPARIN 40 MG/0.4 ML SYR SC SCH (09:40)
[2018-04-23] MEDS: INSULIN GLARGINE 100 UNITS/ML UNIT SC SCH ×2 (09:40→21:20)
[2018-04-23] MEDS ORDERED: MAG HYDROX/AL HYDROX/SIMETH 30 ML UDCUP PO PRN (12:50)
[2018-04-23] MEDS ORDERED: LIDOCAINE 2% VISCOUS 15 ML UDCUP PO PRN (12:51)
--- NOTE | 2018-04-23 12:52 | PDINTPN ---
[facility] Progress Note Assessment/Plan: Assessment: DKA: Resolved with insulin and IVF. Hypokalemia: Persists Esophagitis/gastritis. Likely a combination of GERD and possible viral gastroenteritis. Still quite symptomatic. Plan: Converted to SQ insulin Will add Pepcid to ensure optimal acid suppression since he's not eating much. Will also add PRN Maalox, lidocaine, and sucralfate to see if they will help his symptoms. GI consult if not improving, especially given the prominent esophagitis seen on CT, as well as gastric distension. 04/23/18 13:11 Subjective: Aches all over. C/O burning pain in lower chest with any PO. Objective: Vital Signs Temp Pulse Resp BP Pulse Ox 37.6 C 101 H 18 112/70 95 04/23/18 12:00 04/23/18 12:00 04/23/18 12:00 04/23/18 12:00 04/23/18 12:00 Laboratory Results 04/22/18 07:45 04/23/18 08:35 04/22/18 04/23/18 04/24/18 05:59 05:59 05:59 Intake Total 3300 7211 1268.5 Output Total 2450 4000 2340 Balance 850 3211 -1071.5 PT 15.5 SEC (12.0-15.0) H 04/22/18 00:54 INR 1.21 (0.83-1.16) H 04/22/18 00:54 Laboratory Tests 04/22/18 22:30 Beta-Hydroxybutyrate 0.07 Physical Exam - Physical Exam General Appearance: alert, no apparent distress EENT: normal ENT inspection Neck: normal inspection Respiratory: lungs clear, normal breath sounds Cardiac/Chest: regular rate, rhythm, No edema Abdomen: normal bowel sounds, non-tender Skin: normal color, warm/dry Extremities: normal inspection Neuro/Psych: alert, normal mood/affect, oriented x 3 ICD10 Worksheet Patient Problems: Problems Problem Status Onset DKA (diabetic ketoacidoses) Acute Hyperglycemia due to type 1 diabetes mellitus Acute Vomiting Acute
[2018-04-23] MEDS: INSULIN LISPRO 100 UNIT/ML SC SCH ×2 (12:55→16:56)
[2018-04-23] MEDS ORDERED: FAMOTIDINE 20 MG/NACL 50 ML IV SCH (13:00)
[2018-04-23] MEDS ORDERED: FLUCONAZOLE/NaCl 100 ML IV ONE (13:45)
[2018-04-23] MEDS ORDERED: FLUCONAZOLE/NaCl 100 ML IV SCH (14:00)
[2018-04-23] MEDS: SUCRALFATE 1 GM/10 ML UDCUP PO SCH ×3 (14:13→19:33)
[2018-04-23] MEDS ORDERED: PROTOCOL POTASSIUM 1 DOSE MISC PRN (16:56)
[2018-04-23] MEDS ORDERED: SUCRALFATE 1 GM/10 ML UDCUP PO SCH (17:30)
--- NOTE | 2018-04-23 17:35 | HOSPPROG ---
Hospitalist Progress Note Assessment/Plan: Subjective Follow-up on acute acidosis. No acute events overnight. Patient was more alert this morning. I asked him if he felt like having something to eat for breakfast and he said he did. Case was also discussed with Dr. Morrell as well as his nurse today during rounds. Objective Vitals as detailed below Exam General-sedate but arousable, more arousable as compared to yesterday's exam Heart-tachycardic, regular rate and rhythm no murmurs Lungs-Clear to auscultation with normal respiratory effort Abdomen-soft nontender nondistended normal bowel sounds -no Maldonado catheter in place Extremities-no significant pitting edema or calf pain with palpation Skin-no concerning skin rashes noted Labs as detailed below Assessment and plan Diabetic ketoacidosis-improving. I think we can transition him to subcutaneous insulin today. He tells me that he normally takes detemir insulin 35 units twice a day. I have recommended we start with Lantus 20 units twice a day for now along with sliding scale insulin prior to meals. Esophagitis-Dr. Morrell did review the concern for esophagitis with Gastroenterology. It was felt that patient was high risk for Terri esophagitis and patient was started on empiric Diflucan. Leukocytosis-currently afebrile without any obvious infectious source. Possibly stress reaction from ketoacidosis and/or infectious esophagitis. A repeat CBC has been ordered for tomorrow morning. Encephalopathy-improved Hypercalcemia-resolved and now normal. Diabetes mellitus type 1-uncertain compliance to insulin. Will check a hemoglobin A1c if not recently done. DVT prophylaxis-Lovenox. Disposition-with continued clinical improvement likely could be downgraded to SDU status. Objective: Vital Signs Temp Pulse Resp BP Pulse Ox 37.0 C 109 H 16 144/79 H 97 04/23/18 16:00 04/23/18 16:00 04/23/18 16:00 04/23/18 16:00 04/23/18 16:00 Laboratory Results 04/23/18 14:45 04/22/18 04/23/18 04/24/18 05:59 05:59 05:59 Output Total 1130 Balance -1130 PT 15.5 SEC (12.0-15.0) H 04/22/18 00:54 INR 1.21 (0.83-1.16) H 04/22/18 00:54 ICD10 Worksheet Patient Problems: Problems Problem Status Onset DKA (diabetic ketoacidoses) Acute Hyperglycemia due to type 1 diabetes mellitus Acute Vomiting Acute
[2018-04-24 04:35] LABS: PLATELET COUNT 198 10^3/uL (150-400)
[2018-04-24] MEDS: POTASSIUM Cl (KCl) 50 ML IV SCH ×6 (05:10→16:36)
[2018-04-24] MEDS: SUCRALFATE 1 GM/10 ML UDCUP PO SCH ×4 (07:18→21:07)
[2018-04-24] MEDS: INSULIN LISPRO 100 UNIT/ML SC SCH ×3 (07:28→17:55)
[2018-04-24] MEDS: PANTOPRAZOLE SODIUM 40 MG VIAL IVP SCH ×2 (08:49→21:07)
[2018-04-24] MEDS: ENOXAPARIN 40 MG/0.4 ML SYR SC SCH (08:50)
[2018-04-24] MEDS: FLUCONAZOLE 100 MG TAB PO SCH (08:53)
--- NOTE | 2018-04-24 09:23 | PDMN ---
Medical Necessity Medical necessity: [facility] M130 Diabetes: 47 yo w/ n/v in DKA evidenced by AG >20, pH 7.15, and undetectable HCO3 on admission, acute metabolic encephalopathy, hyperkalemia and leukocytosis. 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 H/H on admit , now 10.6/29.3. Pt requiring additional MN to cont to monitor and treat ongoing s/sx. Change to IP status @1318 per MD order.
[2018-04-24] MEDS: INSULIN GLARGINE 100 UNITS/ML UNIT SC SCH ×2 (09:38→21:06)
[2018-04-24] MEDS ORDERED: POTASSIUM Cl (KCl) 50 ML IV ONE (09:40)
--- NOTE | 2018-04-24 10:45 | HOSPPROG ---
Hospitalist Progress Note Assessment/Plan: 47 yo M w dm1 a/w DKA, dysphagia w vomiting DKA: gap closed, on long acting insulin last a1c 9.9 on lower dose long acting insulin given poor po intake dysphagia: curbside w GI led to treatment for presumed candidal esophagitis slightly improved today continue current rx x add mbx mouthwash if not improved tomorrow will pursue endoscopy no signs bleeding esophageal thickening noted hypokalemia: mild add K to fluids dc K protocol proph: lmwh tachycardia: mild and intermittent follow euvolemic dispo: transfer to med surg Subjective: case d/w dr oh. pain w eating, burning, "like swallowing broken glass" Objective: Vital Signs Temp Pulse Resp BP Pulse Ox 37.0 C 101 H 15 134/75 H 96 04/24/18 07:30 04/24/18 07:30 04/24/18 07:30 04/24/18 07:30 04/24/18 07:30 Laboratory Results 04/24/18 03:05 04/24/18 08:48 04/23/18 04/24/18 04/25/18 05:59 05:59 05:59 Intake Total 3338 Output Total 3445 1005 Balance -107 -1005 PT 15.5 SEC (12.0-15.0) H 04/22/18 00:54 INR 1.21 (0.83-1.16) H 04/22/18 00:54 - Physical Exam Constitutional: no apparent distress, appears nourished Eyes: PERRL, anicteric sclera Ears, Nose, Mouth, Throat: moist mucous membranes, hearing normal Cardiovascular: no murmur, rub, or gallop, tachycardia Respiratory: no respiratory distress, no rales or rhonchi Gastrointestinal: normoactive bowel sounds, soft, non-tender abdomen Genitourinary: no bladder fullness, No guzman in urethra Skin: warm, normal color Musculoskeletal: full muscle strength, no muscle tenderness Neurologic: AAOx3 ICD10 Worksheet Patient Problems: Problems Problem Status Onset DKA (diabetic ketoacidoses) Acute Hyperglycemia due to type 1 diabetes mellitus Acute Vomiting Acute
[2018-04-24] MEDS: MBX SOLN 30 ML BOTTLE PO PRN ×2 (11:08→16:37)
[2018-04-24] MEDS: NS W/ 20 KCl/L 1,000 ML IV SCH ×2 (11:10→21:06)
[2018-04-24] MEDS: BACLOFEN 10 MG TAB PO PRN ×2 (11:12→17:37)
[2018-04-24] MEDS ORDERED: PROTOCOL POTASSIUM 1 DOSE MISC PRN (21:23)
[2018-04-25] MEDS: NS W/ 20 KCl/L 1,000 ML IV SCH (05:55)
[2018-04-25] MEDS: SUCRALFATE 1 GM/10 ML UDCUP PO SCH ×4 (05:56→20:19)
[2018-04-25 06:21] LABS: PLATELET COUNT 214 10^3/uL (150-400)
[2018-04-25] MEDS: INSULIN LISPRO 100 UNIT/ML SC SCH ×4 (08:47→17:35)
[2018-04-25] MEDS: ENOXAPARIN 40 MG/0.4 ML SYR SC SCH (09:36)
[2018-04-25] MEDS: INSULIN GLARGINE 100 UNITS/ML UNIT SC SCH ×2 (09:36→20:42)
[2018-04-25] MEDS: PANTOPRAZOLE SODIUM 40 MG VIAL IVP SCH ×2 (09:36→20:19)
[2018-04-25] MEDS: FLUCONAZOLE 100 MG TAB PO SCH (09:36)
--- NOTE | 2018-04-25 10:39 | HOSPPROG ---
Hospitalist Progress Note Assessment/Plan: 47 yo M w dm1 a/w DKA, dysphagia w vomiting DKA: gap closed, on long acting insulin last a1c 9.9 on lower dose long acting insulin given poor po intake dysphagia: curbside w GI led to treatment for presumed candidal esophagitis slightly improved today continue current rx x add mbx mouthwash if not improved tomorrow will pursue endoscopy no signs bleeding esophageal thickening noted ABLA: dark stool this AM bun low follow hypokalemia: mild add K to fluids dc K protocol proph: lmwh tachycardia: mild and intermittent follow euvolemic dispo: transfer to med surg Subjective: dark stool this AM. esophageal pain still present but improving Objective: Vital Signs Temp Pulse Resp BP Pulse Ox 37.1 C 106 H 18 124/76 H 95 04/25/18 07:43 04/25/18 07:43 04/25/18 07:43 04/25/18 07:43 04/25/18 07:43 Laboratory Results 04/25/18 06:00 04/25/18 06:00 04/24/18 04/25/18 04/26/18 05:59 05:59 05:59 Intake Total 3338 4616 Output Total 3445 2365 Balance -107 2251 PT 15.5 SEC (12.0-15.0) H 04/22/18 00:54 INR 1.21 (0.83-1.16) H 04/22/18 00:54 - Physical Exam Constitutional: no apparent distress, appears nourished Eyes: PERRL, anicteric sclera Ears, Nose, Mouth, Throat: moist mucous membranes, hearing normal Cardiovascular: regular rate and rhythym, no murmur, rub, or gallop Respiratory: no respiratory distress, no rales or rhonchi Gastrointestinal: normoactive bowel sounds, soft, non-tender abdomen Genitourinary: no bladder fullness, No guzman in urethra Skin: warm, normal color Musculoskeletal: full muscle strength, no muscle tenderness Neurologic: AAOx3 Psychiatric: interacting appropriately ICD10 Worksheet Patient Problems: Problems Problem Status Onset DKA (diabetic ketoacidoses) Acute Hyperglycemia due to type 1 diabetes mellitus Acute Vomiting Acute
[2018-04-25] MEDS ORDERED: POTASSIUM CL 10 MEQ TAB PO ONE (11:31)
--- NOTE | 2018-04-25 16:13 | ASMTCMCOM ---
CM Note CM Note Notes: DKA, Dysphasia, vomiting, dark stool in AM, esophageal pain-thickening. Lives in an RV. Was given resources in ER for the Assisted and Coordinated Entry. Has a girlfriend, Nuris. Has a son who lives n [place]. To transfer to the floor. Date Signed: 04/25/2018 04:12 PM Electronically Signed By:Virginia Onofre LCSW
[2018-04-25] MEDS: metFORMIN HCL 500 MG TAB PO SCH (22:11)
[2018-04-26] MEDS ORDERED: POTASSIUM CL 10 MEQ TAB PO ONE ×2 (00:17→19:53)
[2018-04-26 06:25] LABS: PLATELET COUNT 256 10^3/uL (150-400)
[2018-04-26] MEDS: SUCRALFATE 1 GM/10 ML UDCUP PO SCH ×4 (07:38→20:20)
[2018-04-26] MEDS: INSULIN LISPRO 100 UNIT/ML SC SCH ×3 (07:40→18:09)
[2018-04-26] MEDS: metFORMIN HCL 500 MG TAB PO SCH ×2 (08:05→18:09)
[2018-04-26] MEDS: FLUCONAZOLE 100 MG TAB PO SCH (08:05)
[2018-04-26] MEDS: ENOXAPARIN 40 MG/0.4 ML SYR SC SCH (08:05)
[2018-04-26] MEDS: INSULIN GLARGINE 100 UNITS/ML UNIT SC SCH ×2 (08:05→20:20)
[2018-04-26] MEDS: PANTOPRAZOLE SODIUM 40 MG VIAL IVP SCH ×2 (08:06→20:20)
--- NOTE | 2018-04-26 11:21 | HOSPPROG ---
Hospitalist Progress Note Assessment/Plan: 47 yo M w dm1 a/w DKA, dysphagia w vomiting DKA: gap closed, on long acting insulin last a1c 9.9 on lower dose long acting insulin given poor po intake 04/26- increasing lantus to 32 bid add metformin as he had been on that in the past dysphagia: curbside w GI led to treatment for presumed candidal esophagitis slightly improvement everyday continue current rx x add mbx mouthwash if not improved tomorrow will pursue endoscopy no signs bleeding esophageal thickening noted ABLA: dark stool this AM bun low follow hgb stabilized at 10 hypokalemia: mild add K to fluids dc K protocol proph: lmwh tachycardia: mild and intermittent follow euvolemic dispo: transfer to med surg Subjective: dysphagia slowly improving Objective: Vital Signs Temp Pulse Resp BP Pulse Ox 36.8 C 110 H 12 101/72 95 04/26/18 07:23 04/26/18 07:23 04/26/18 07:23 04/26/18 07:23 04/26/18 07:23 Laboratory Results 04/26/18 06:15 04/26/18 06:15 04/25/18 04/26/18 04/27/18 05:59 05:59 05:59 Intake Total 4616 1350 Output Total 2365 Balance 2251 1350 PT 15.5 SEC (12.0-15.0) H 04/22/18 00:54 INR 1.21 (0.83-1.16) H 04/22/18 00:54 - Physical Exam Constitutional: no apparent distress, appears nourished Eyes: PERRL, anicteric sclera Ears, Nose, Mouth, Throat: moist mucous membranes, hearing normal Cardiovascular: regular rate and rhythym, no murmur, rub, or gallop Respiratory: no respiratory distress, no rales or rhonchi Gastrointestinal: normoactive bowel sounds, soft, non-tender abdomen Genitourinary: no bladder fullness, No guzman in urethra Skin: warm, normal color Musculoskeletal: full muscle strength, no muscle tenderness Neurologic: AAOx3 Psychiatric: interacting appropriately ICD10 Worksheet Patient Problems: Problems Problem Status Onset DKA (diabetic ketoacidoses) Acute Hyperglycemia due to type 1 diabetes mellitus Acute Vomiting Acute
[2018-04-26] MEDS ORDERED: PANTOPRAZOLE SODIUM 40 MG TAB PO SCH (21:00)
[2018-04-27] MEDS: INSULIN LISPRO 100 UNIT/ML SC SCH ×3 (07:44→18:38)
[2018-04-27] MEDS: metFORMIN HCL 500 MG TAB PO SCH ×2 (07:45→18:34)
[2018-04-27] MEDS: SUCRALFATE 1 GM/10 ML UDCUP PO SCH ×4 (07:45→21:49)
[2018-04-27] MEDS: ENOXAPARIN 40 MG/0.4 ML SYR SC SCH (09:36)
[2018-04-27] MEDS: FLUCONAZOLE 100 MG TAB PO SCH (09:37)
[2018-04-27] MEDS: INSULIN GLARGINE 100 UNITS/ML UNIT SC SCH ×2 (09:37→21:49)
[2018-04-27] MEDS: PANTOPRAZOLE SODIUM 40 MG VIAL IVP SCH (09:37)
--- NOTE | 2018-04-27 13:53 | ASMTCMCOM ---
CM Note CM Note Notes: Spoke with pt and girlfriend in the room. Pt and girlfriend live in an RV and are both struggling with substance abuse and wanting to recover. Pt provided resources for [facility], addiction resources covered by Medicaid, CM alcohol addiction packet and information regarding [facility] and [facility]. Pt also connected with [employer] as he is concerned medicaid coverage will lapse in a few days. Pt to discharge back to RV with plans to enter [facility] program. Pt also given calendar of AA meetings. CM to follow D/C Plan: home to RV independently Date Signed: 04/27/2018 01:53 PM Electronically Signed By:Judy Liang
--- NOTE | 2018-04-27 15:41 | HOSPPROG ---
Hospitalist Progress Note Assessment/Plan: 47 yo M w dm1 a/w DKA, dysphagia w vomiting DKA: gap closed, on long acting insulin last a1c 9.9 on lower dose long acting insulin given poor po intake 04/26- increasing lantus to 32 bid add metformin as he had been on that in the past odynophagia: curbside w GI led to treatment for presumed candidal esophagitis slightly improvement everyday continue current rx x add mbx mouthwash he still has pain I have called gi regarding upper endoscopy, particularly in light of blood loss ABLA: dark stool this AM bun low follow hgb stabilized at 10 needs egd hypokalemia: mild add K to fluids dc K protocol proph: lmwh tachycardia: mild and intermittent follow euvolemic check tsh dispo: transfer to med surg Subjective: still w odynophagia, albeit slightly improved Objective: Vital Signs Temp Pulse Resp BP Pulse Ox 36.9 C 103 H 12 126/81 H 97 04/27/18 12:13 04/27/18 12:13 04/27/18 12:13 04/27/18 12:13 04/27/18 12:13 Laboratory Results 04/26/18 06:15 04/27/18 05:30 04/26/18 04/27/18 04/28/18 05:59 05:59 05:59 Intake Total 1350 Balance 1350 PT 15.5 SEC (12.0-15.0) H 04/22/18 00:54 INR 1.21 (0.83-1.16) H 04/22/18 00:54 - Physical Exam Constitutional: no apparent distress, appears nourished Eyes: PERRL, anicteric sclera Ears, Nose, Mouth, Throat: moist mucous membranes, hearing normal Cardiovascular: regular rate and rhythym, no murmur, rub, or gallop Respiratory: no respiratory distress, no rales or rhonchi Gastrointestinal: normoactive bowel sounds, soft, non-tender abdomen, No guarding, No rebound Genitourinary: no bladder fullness, No guzman in urethra Skin: warm, normal color Musculoskeletal: full muscle strength, no muscle tenderness Neurologic: AAOx3, sensation intact bilaterally Psychiatric: interacting appropriately, not anxious Lymph, Heme, Immunologic: no cervical LAD ICD10 Worksheet Patient Problems: Problems Problem Status Onset DKA (diabetic ketoacidoses) Acute Hyperglycemia due to type 1 diabetes mellitus Acute Vomiting Acute
--- NOTE | 2018-04-27 17:13 | SOAPPROG ---
SOAP Progress Note Assessment/Plan: Assessment/Plan: Chart reviewed, pt. not seen yet, formal note to follow. Continued odynophagia, despite maximal acid-reflux treatment and empiric diflucan. - change to oral PPI bid - EGD tomorrow Thanks! 04/27/18 17:12 Objective: Vital Signs Temp Pulse Resp BP Pulse Ox 37.2 C 113 H 12 109/64 95 04/27/18 15:57 04/27/18 15:57 04/27/18 15:57 04/27/18 15:57 04/27/18 15:57 Laboratory Results 04/26/18 06:15 04/27/18 05:30 04/26/18 04/27/18 04/28/18 05:59 05:59 05:59 Intake Total 1350 Output Total 615 Balance 1350 -615 PT 15.5 SEC (12.0-15.0) H 04/22/18 00:54 INR 1.21 (0.83-1.16) H 04/22/18 00:54 ICD10 Worksheet Patient Problems: Problems Problem Status Onset DKA (diabetic ketoacidoses) Acute Hyperglycemia due to type 1 diabetes mellitus Acute Vomiting Acute
[2018-04-27] MEDS: PANTOPRAZOLE SODIUM 40 MG TAB PO SCH (21:49)
[2018-04-28 05:26] LABS: PLATELET COUNT 346 10^3/uL (150-400)
[2018-04-28] MEDS ORDERED: POTASSIUM Cl (KCl) 20 MEQ in 1/2 NS 1,000 ML IV SCH (07:00)
[2018-04-28] MEDS: INSULIN LISPRO 100 UNIT/ML SC SCH ×3 (07:54→19:00)
[2018-04-28] MEDS: INSULIN GLARGINE 100 UNITS/ML UNIT SC SCH ×2 (07:54→21:44)
--- NOTE | 2018-04-28 09:20 | CPEKG ---
Test Reason : OPEN Blood Pressure : / mmHG Vent. Rate : 113 BPM Atrial Rate : 114 BPM P-R Int : 148 ms QRS Dur : 084 ms QT Int : 311 ms P-R-T Axes : 074 102 046 degrees QTc Int : [address] elev, probable normal early repol pattern Confirmed by Rodrigo Smith ([id number]) on 04/28/2018 9:20:34 AM Referred By: Confirmed By:Rodrigo Smith
[2018-04-28] MEDS: PANTOPRAZOLE SODIUM 40 MG TAB PO SCH ×2 (10:52→21:44)
--- NOTE | 2018-04-28 10:56 | HOSPPROG ---
Hospitalist Progress Note Assessment/Plan: DIAGNOSES: * acute DKA, resolved * Sugars remain elevated and he does need titration of therapy which I will do after he has had his endoscopy and can start eating again * refractory heartburn and dyspepsia with odynophagia of severe nature * No response to high-dose Protonix, Carafate, Diflucan * Pending upper endoscopy today; will review results today with Dr. Pinto when that is done * Suspected upper GI bleed with onset anemia and melenic stool early on in hospital stay with no further signs of bleeding * sinus tachycardia, uncertain etiology * No pleuritic pain, leg pain, hypoxemia * Continue IV hydration, follow vitals very closely SUBJECTIVE: Still with severe odynophagia unchanged OBJECTIVE Vitals reviewed: Still sinus tachycardia 100-105, otherwise stable without fever [employer], my review: Exam: alert oriented skin warm dry color ok resps not labored lungs clear BSs heart regular abd soft nondistended nontender, bowel sounds present limbs warm, no edema iv site ok Lab data: Hemoglobin stable at 10.9 TSH is normal CO2 high on his chemistry at 32 Sugars fasting this morning at 200 Objective: Vital Signs Temp Pulse Resp BP Pulse Ox 36.9 C 103 H 16 122/73 H 94 04/28/18 07:11 04/28/18 07:11 04/28/18 07:11 04/28/18 07:11 04/28/18 07:11 Laboratory Results 04/28/18 04:39 04/28/18 04:39 04/27/18 04/28/18 04/29/18 06:59 06:59 06:59 Output Total 615 Balance -615 PT 15.5 SEC (12.0-15.0) H 04/22/18 00:54 INR 1.21 (0.83-1.16) H 04/22/18 00:54 ICD10 Worksheet Patient Problems: Problems Problem Status Onset DKA (diabetic ketoacidoses) Acute Hyperglycemia due to type 1 diabetes mellitus Acute Vomiting Acute
[2018-04-28] MEDS ORDERED: LR 1,000 ML IV ONE (12:12)
--- NOTE | 2018-04-28 12:25 | ECHO ---
[email or web address] [address] [address] Main: [phone] Fax: Transthoracic Echocardiogram Name: DUSTY CALABRESE MR#: [id number] Study Date: 04/28/2018 Study Time: 08:50 AM Date of : 1970 Age: 47 year(s) Height: 177.8 cm (70 in.) Weight: 81.65 kg (180 lb.) BSA: 2 m2 Gender: Male Examination: Echo Indication: sinus tach Image Quality: Adequate Contrast: Requested by: Flavio Lares BP: 122 mmHg/73 mmHg Heart Rate: Rhythm: Indication: sinus tach Procedure Staff General Ledger Bookkeeper: Vanessa Sanchez [facility] Reading Physician: Shun Vick MD Requesting Provider: Conclusions: Normal size left ventricle. Normal diastolic LV function. Normal RV function. The left atrium is normal in size. Mild mitral valve leaflet calcification is present. Trivial mitral valve regurgitation. The aortic valve is tri-leaflet. There is no significant aortic valve regurgitation. No aortic valve stenosis is present. Trivial tricuspid valve regurgitation. Measurements: Chambers Valvular Assessment AV/MV Valvular Assessment TV/PV Normal Normal Normal Name Value Range Name Value Range Name Value Range Ao Felisa (2D): 2.9 cm (1.4 cm-2.6 AV Vmax: 1.13 m/s (1 m/s-1.7 PV Vmax: 0.87 m/s (0.6 m/s-0.9 cm) m/s) m/s) IVSd (2D): 1.0 cm (0.6 cm-1.1 AV maxP mmHg ( - ) PV PGmax: 3 mmHg ( - ) cm) AV meanP mmHg ( - ) LVDd (2D): 3.7 cm (4.2 cm-5.9 VINCENT (VTI): 2.9 cm ( - ) cm) MV E Vmax: 0.54 m/s ( - ) LVDs (2D): 2.8 cm (2.1 cm-4 MV A Vmax: 0.57 m/s ( - ) cm) MV E/A: 0.95 ( - ) LVPWd (2D): 1.0 cm (0.6 cm-1 cm) MV PHT: 0.084 s ( - ) LVOTd 2.1 cm 2.1 cm mm MVA (PHT): 2.6 s ( - ) RVDd(2D): 3.3 cm (1.9 cm-3.8 cmmm) Continued Measurements: Patient: DUSTY CALABRESE Study Date: 04/28/2018 Page 1 of 2 08:50 AM Chambers Valvular Assessment AV/MV Name Value Name Value LADs: 2.6 cm MV DecTime: 246 m/s LADs Lon.6 cm MV E' Septal: 0.08 m/s LA Area: 10.1 cm2 MV E/E' Septal: 6.40 LA Volume: 28 ml MV E/E' Lateral: 3.90 LA Volume Index: 14.0 ml/m2 RA Area: 11.6 cm2 Additional Vessels Name Value Ao Ascendin.8 cm Inferior Vena Cava: 1.1 cm Findings: Left Ventricle: Normal size left ventricle. No LV hypertrophy. No regional wall motion abnormality. Normal diastolic LV function. Right Ventricle: Normal size right ventricle. Normal RV function. Left Atrium: The left atrium is normal in size. Right Atrium: The right atrium is normal in size. Mitral Valve: The mitral valve is normal in appearance and function. Mild mitral valve leaflet calcification is present. Trivial mitral valve regurgitation. No mitral stenosis is present. Aortic Valve: The aortic valve is tri-leaflet. There is no significant aortic valve regurgitation. No aortic valve stenosis is present. Tricuspid Valve: The tricuspid valve is normal in appearance and function. Trivial tricuspid valve regurgitation. Pulmonic Valve: The pulmonic valve is normal in appearance and function. Trivial pulmonic valve regurgitation. Aorta: The aorta is normal. Normal size aortic root measuring 2.9 cm. Normal size ascending aorta measuring 2.8 cm. IVC: The IVC is normal sized. Pericardium: No pericardial effusion. No pleural effusion. Exam Comments: Please eval EF. (No Signature Object) Patient: DUSTY CALABRESE Study Date: 04/28/2018 Page 2 of 2 08:50 AM [id number]
[2018-04-28] MEDS ORDERED: PROPOFOL 200 MG/20 ML VIAL ONE (12:39)
[2018-04-28] MEDS ORDERED: NALOXONE HCL 0.4 MG/ML INJ IVP PRN (12:44)
[2018-04-28] MEDS ORDERED: ALBUTEROL 3 ML DEYVIAL IH PRN (12:44)
[2018-04-28] MEDS ORDERED: fentaNYL 100 MCG/2 ML INJ IVP PRN (12:44)
[2018-04-28] MEDS ORDERED: ONDANSETRON 4 MG/2 ML VIAL IVP PRN (12:44)
[2018-04-28] MEDS ORDERED: DEXAMETHASONE 4 MG/ML VIAL IVP PRN (12:44)
[2018-04-28] MEDS ORDERED: HYDROmorphONE/DILAUDID 2 MG/ML INJ IVP PRN (12:44)
--- NOTE | 2018-04-28 12:46 | PDANEPAE ---
ANE History of Present Illness EGD ANE Past Medical History - Pulmonary History Hx Oxygen in Use at Home: No Hx Sleep Apnea: No Sleep Apnea Screening Result - Last Documented: Positive - Endocrine History Hx Diabetes: Yes ANE Review of Systems Review of Systems: ANE Patient History - Allergies Allergies/Adverse Reactions: No Known Allergies Allergy (Unverified 04/22/18 00:29) - Home Medications Home Medications: Insulin Aspart [Novolog Flexpen] 10 - 25 unit SQ ACHS PRN 04/23/18 [Last Taken Unknown] Insulin Detemir [Levemir Flextouch] 40 unit SQ BID 04/23/18 [Last Taken Unknown] metFORMIN HCL [Metformin HCl] 1,000 mg PO BID 04/26/18 [Last Taken Unknown] - NPO status NPO Since - Liquids (Date): 04/28/18 NPO Since - Liquids (Time): 00:00 NPO Since - Solids (Date): 04/28/18 NPO Since - Solids (Time): 00:00 - Smoking Hx Smoking Status: Smoker current status UNK ANE Labs/Vital Signs - Labs Result Diagrams: 04/28/18 04:39 04/28/18 04:39 - Vital Signs Blood Pressure: 128/85 Heart Rate: 104 Respiratory Rate: 15 O2 Sat (%): 97 Height: 177.8 cm Weight: 82 kg ANE Physical Exam - Airway Neck exam: FROM Mallampati Score: Class 2 Mouth exam: poor dentition - Pulmonary Pulmonary: clear to auscultation - Cardiovascular Cardiovascular: regular rate and rhythym - ASA Status ASA Status: III (DM, admit for DKA, GERD, ) ANE Anesthesia Plan Anesthesia Plan: GA with mask
--- NOTE | 2018-04-28 13:22 | POSTANESTH ---
Post Anesthetic Evaluation Cardiovascular Status: Normal, Stable Respiratory Status: Normal, Stable Level of Consciousness/Mental Status: Can Participate in Eval, Mildly Sleepy, Arousable Pain Control: Adequate, Prn Tx Ordered Nausea/Vomiting Control: Adequate, Prn Tx Ordered Complications Possibly Related to Anesthesia: None Noted
--- NOTE | 2018-04-28 13:25 | GIREPORT ---
[facility] - Endoscopy Department Patient Name: Leonardo Chester Procedure Date: 04/28/2018 12:34 PM Patient Type: Inpatient Attending MD/ ER Physician: Drew Pinto MD Procedure: Upper GI endoscopy Indications: Note dictated, consult appreciated. Odynophagia. Providers: Drew Pinto MD, FACG Medicines: See the Anesthesia note for documentation of the administered medicatio ns Complications: No immediate complications. Description of Procedure: After obtaining informed consent, the endoscope was passed under direct vision. Throughout the procedure, the patient's blood pressure, pulse, and oxygen saturations were monitored continuously. The Endoscope was intro duced through the mouth, and advanced to the second part of duodenum. Findings: Moderately severe exudative esophagitis was found in the lower third of the esophagus. Biopsies were taken with a cold forceps for histology. The stomach was normal. The examined duodenum was normal. No active bleeding. Estimated Blood Loss: none. Post Op Diagnosis: - Moderately severe esophagitis, as above. Most likely acid-peptic in nature, along with emetogenic (vomiting acid contents, due to his DKA). Fungal possible. With it's moderately severe nature, will take time to heal. Recommendation: - feed - buffcap IV - Pathology results pending, to r/o fungal, but would complete a seven day course of empiric diflucan. - Continue bid PPI. - Continue sucralfate, until he feels better, but will change to 2 g sl urry bid. - time I will sign off; I will f/u on biopsy results. Else, please call if we can be of further help [phone] Thank you for allowing me to help in the management of this patient. Attending Participation: I personally performed the entire procedure. Millie Russell MD Drew Pinto MD 04/28/2018 1:25:08 PM This report has been signed electronicallyPeter MD Millie Number of Addenda: 0 Note Initiated On: 04/28/2018 12:34 PM [email or web address]
--- NOTE | 2018-04-28 13:53 | GCON ---
GI INPATIENT CONSULTATION DATE OF CONSULTATION: 04/28/2018 I was kindly requested to see the patient by Dr. Flavio Lares in consultation for a chief complaint of odynophagia. He was admitted to the hospital with DKA. He has been having significant nausea and vomiting, initially from a viral gastroenteritis. He re-presented with DKA. He complains of odynophagia. He denies dysphagia. He does have a history of chronic heartburn, and for this, uses omeprazole as needed. He did have 1 episode of black stool while here in the hospital. PAST MEDICAL HISTORY: 1. As above. 2. Otherwise, noncontributory. ALLERGIES: No known drug allergies. INPATIENT MEDICATIONS: Include Diflucan, insulin, viscous lidocaine as needed, Protonix 40 mg IV twice a day, Carafate 1 g a.c./bedtime in liquid form. SOCIAL HISTORY: I believe he is homeless. FAMILY HISTORY: Negative for similar odynophagia. REVIEW OF SYSTEMS: Positive pertinent review of systems as per my HPI. Otherwise, a complete review of systems is negative. PHYSICAL EXAMINATION: CONSTITUTIONAL: Somewhat chronically ill-appearing pleasant gentleman. VITAL SIGNS: Stable. SKIN: Warm, dry. EYES: Pupils equal, round, reactive to light and accommodation. EARS, NOSE, MOUTH, AND THROAT: Poor dentition. No masses seen. CARDIOVASCULAR: Normal S2. Normal PMI. RESPIRATORY: Lungs clear to auscultation and percussion anteriorly. GASTROINTESTINAL: Abdomen soft, nontender. NEUROLOGIC: Grossly nonfocal. Cranial nerves grossly intact. PSYCHIATRIC: Orientation, insight appropriate. MUSCULOSKELETAL: Strength grossly normal throughout. Normal station. LABORATORIES: Include initial hematocrit 21,000, but now 9000. Hematocrit stable at 32.3%. Elevated glucose. Normal coags. Normal liver function tests. Normal lipase. ASSESSMENT: Odynophagia. Suspect mostly acid peptic in nature, both from his chronic heartburn, but also with recent vomiting of acid contents due to a viral gastroenteritis and now diabetic ketoacidosis. With his diabetic ketoacidosis, certainly candidal esophagitis is also possible. PLAN: 1. Upper endoscopy. 2. Further management pending the above. Thank you for allowing me to help in the care of this patient. /[id number]/MODL MTDD
[2018-04-28] MEDS: SUCRALFATE 1 GM/10 ML UDCUP PO SCH ×2 (13:57→21:44)
[2018-04-28] MEDS: ENOXAPARIN 40 MG/0.4 ML SYR SC SCH (15:58)
[2018-04-28] MEDS: FLUCONAZOLE 100 MG TAB PO SCH (15:58)
[2018-04-28] MEDS: metFORMIN HCL 500 MG TAB PO SCH ×2 (15:59→19:00)
--- NOTE | 2018-04-29 09:37 | PDDCSUM ---
Discharge Summary Discharge Summary: DISCHARGE DIAGNOSES: * intractable nausea vomiting * diabetic ketoacidosis * acute dehydration * severe esophagitis, suspected to be primarily peptic but cannot rule out Terri at this time * diabetes mellitus, hemoglobin A1c 9.7 indicating inadequate control at his age CONSULTANTS: Dr. Drew Pinto PROCEDURES: Esophagogastroduodenoscopy showing diffuse severe esophagitis HOSPITAL COURSE SUMMARY: This patient developed nausea and vomiting potentially from a virus as his had similar nausea vomiting. After 2 days of severe vomiting and dehydration however he came into the ER and was hydrated given some antiemetics. He felt better and went home but came back another day later with continued severe vomiting. By that time he was in DKA and had severe odynophagia and substernal chest discomfort from the vomiting. He has been found on EGD to have severe diffuse esophagitis that appears mostly peptic but could not rule out fungal. He has been treated at this time with IV hydration in DKA protocol and the DKA has well resolved. He has been treated with proton pump inhibitor Protonix twice daily along with Carafate slurry and Diflucan, and his esophagitis symptoms are still significant but improving. He is now able to eat and drink okay and no longer has nausea or vomiting. The patient has a good understanding that he will need at least 12 weeks of twice daily proton pump inhibitor therapy for resolution of his esophagitis and will complete a total 7 day treatment with Diflucan. He does have some chronic reflux symptoms and he has been given information on anti reflux diet, avoiding alcohol and tobacco, and avoiding lying down with full stomach. He is also advised on seeking adequate care and long enough care for treatments of nausea and vomiting so that he can try and avoid dehydration and DKA in the future. The patient's hemoglobin A1 7 as at 9.7 and he is referred to his treating physician for diabetes to try and refine management of his glycemia. PENDING TEST RESULTS: Biopsy from esophagitis MEDICATION CHANGES: Protonix 40 mg p.o. Twice daily for at least 12 weeks Diflucan 100 mg daily to complete a 7 day course Carafate slurry bid viscous lidocaine po before meals FOLLOW-UP PLAN: With Dr. Pinto 4-6 weeks With primary care and/or endocrine physician in 2-4 weeks Greater than 35 minutes bedside and care coordination time today
[2018-04-29] MEDS: INSULIN LISPRO 100 UNIT/ML SC SCH ×3 (09:47→17:57)
[2018-04-29] MEDS: SUCRALFATE 1 GM/10 ML UDCUP PO SCH (09:47)
[2018-04-29] MEDS: PANTOPRAZOLE SODIUM 40 MG TAB PO SCH (09:48)
[2018-04-29] MEDS: metFORMIN HCL 500 MG TAB PO SCH ×2 (09:48→18:04)
[2018-04-29] MEDS: INSULIN GLARGINE 100 UNITS/ML UNIT SC SCH (11:32)
--- NOTE | 2018-04-29 11:43 | ASMTCMCOM ---
CM Note CM Note Notes: Reviewed chart. Pt to discharge back to his RV independently with his girlfriend's assistance. Per prior CM notes, pt provided with resources on [facility], [place] [facility], [facility], AA meetings, and [employer]/Medicaid information. Pt encouraged to follow up with appropriate community resources. Pt to follow up for severe esophagitis per MD orders. No IM/GALO signed, not applicable. CM available for any further issues or concerns. Discharge Plan: Independent Date Signed: 04/29/2018 11:40 AM Electronically Signed By:Krysta Reyez RN
--- NOTE | 2018-04-29 11:44 | ASDISCHSUM ---
Discharge Information Plan Status:Home with No Needs Medically Cleared to Leave:04/29/2018 Discharge Date:04/29/2018 CM D/C Disposition:Home, Routine, Self-Care ADT D/C Disposition:Home, Routine, Self-Care Projected Discharge Date:04/29/2018 Transportation at D/C:Family Discharge Delay Reason: Follow-Up Date:04/29/2018 Discharge Slot:1 - 8:01 am - 12:00 noon Final Diagnosis:Intractable nausea, vomiting, DKA, acute dehydration, severe esophagitis Placement Information Patient Contact Information Contact Name:NAVEEN Relationship:Other Address:[facility] [facility] Work Phone: City:[place] Alternate Phone: State/Zip Code:[place] [address] Email: Financial Information Financial Class:Medicaid Primary Plan Desc:[facility] Primary Plan Number:[id number] Secondary Plan Desc: Secondary Plan Number: Assessment Information LACE LACE Length of stay for Answers: 4-6 days current admission Acuity / Level of Answers: Yes Care: Did the patient have an inpatient admission? Comorbidities - select Answers: Diabetes (uncontrolled or all that apply controlled) Other Notes: severe esophagitis # of Emergency department Answers: 1-2 visits in the last 6 months Social determinants Answers: History of substance abuse (ETOH, street drugs, prescription drugs, etc.) Homelessness (street, intermediate) Score: 16 Date Signed: 04/29/2018 11:41 AM Electronically Signed By:Krysta Reyez RN [facility] GALO Progress Note CM [place] CM Note Notes: Pt's chart reviewed for d/c planning. Pt is a 47y/o male who was brought into the ED due to nausea and vomitting. The pt has insulin dependent diabetes and was in ketoacidosis. He was unable to respond to questions in the ED and can now provide answers to simple questions; he is still quite fatigued. Pt was in the hospital earlier in the week due to viral gastroenteritis. At that time his gf, Nuris, met with CM and shared that pt had just been relaeased from custodial 2 days earlier and that they had been living in a RV. They had used meth the day prior. CM gave him multiple resources for the intermediate and coordinated entry. D/C will most likely be to pt's RV, the intermediate or the streets. CM to follow. D/C Plan: Anticipate pt's RV, intermediate, streets. Date Signed: 04/22/2018 03:24 PM Electronically Signed By:Riya Quan [facility] GALO Progress Note GALO Dawkins CM Note Notes: DKA, Dysphasia, vomiting, dark stool in AM, esophageal pain-thickening. Lives in an RV. Was given resources in ER for the [facility] and Coordinated Entry. Has a girlfriend, Nuris. Has a son who lives n [place]. To transfer to the floor. Date Signed: 04/25/2018 04:12 PM Electronically Signed By:Virginia Onofre LCSW [facility] GALO Progress Note GALO Dawkins CM Note Notes: Spoke with pt and girlfriend in the room. Pt and girlfriend live in an RV and are both struggling with substance abuse and wanting to recover. Pt provided resources for [facility], addiction resources covered by Medicaid, alcohol addiction packet and information regarding Coord[facility] and [place]. Pt also connected with [employer] as he is concerned medicaid coverage will lapse in a few days. Pt to discharge back to RV with plans to enter Coordinated Entry program. Pt also given calendar of AA meetings. CM to follow D/C Plan: home to RV independently Date Signed: 04/27/2018 01:53 PM Electronically Signed By:Judy Liang [facility] CM Progress Note CM Note CM Note Notes: Reviewed chart. Pt to discharge back to his RV independently with his girlfriend's assistance. Per prior CM notes, pt provided with resources on Coordinate [facility], [place], [facility], AA meetings, and [employer]/Medicaid information. Pt encouraged to follow up with appropriate community resources. Pt to follow up for severe esophagitis per MD orders. No HEATHER/GALO signed, not applicable. CM available for any further issues or concerns. Discharge Plan: Independent Date Signed: 04/29/2018 11:40 AM Electronically Signed By:Krysta Reyez RN Intervention Information Intervention Type:*Incorrect Registration Date of Service:04/22/2018 09:58 AM Patient Type:Inpatient Staff Member:ALIVIA Lares Courtney Hours: Discipline: Severity: Comment:
[2018-04-29] MEDS ORDERED: INSULIN GLARGINE 100 UNITS/ML UNIT SC ONE (12:27)
[2018-04-29] MEDS: LIDOCAINE 2% VISCOUS 15 ML UDCUP PO SCH ×2 (13:15→18:04)
[2018-04-29 16:16] VITALS: BP 126/75
[2018-04-29] MEDS: ENOXAPARIN 40 MG/0.4 ML SYR SC SCH (16:49)
[2018-04-29] MEDS ORDERED: LIDOCAINE 2% VISCOUS 15 ML UDCUP PO SCH (17:30)
--- NOTE | 2018-05-03 12:46 | PQFORM ---
PHYSICIAN QUERY FORM Needs Your Response This query form is being sent to you to assure this patient record is coded properly. Please respond to the question below: SURGICAL SERVICES MANAGER QUESTION: Dr. Patel, The diagnosis of Acute Metabolic Encephalopathy is documented in the History and Physical dated 04/22/2018 and in the Hospitalist Progress Note also dated .~ Would this be appropriate as an additional diagnosis on the discharge summary? Yes No Other Clinically Undetermined Many thanks, CLARICE Bardales [facility]/Coding Department INSTRUCTIONS FOR RESPONSE: Answer question by clicking on the "Edit Document" button. Move cursor to area below the stars. When complete, hit "Save." Click on the "Sign" button, then click "Sign" again. Type in your PIN and hit "Enter." Yes MTDD
== END 2018-04-29 18:30 | disposition home or self-care (01) | DRG 420 ==
LOC: EDUNIT# → INTOOBSV 01:32 → F2N 02:23 → OBSVTOIN 04-23 13:18 → F2N 04-23 18:15 → F3E 04-25 18:31
PROVIDERS: ADMIT Student in an Organized Health Care Education/Training Program; ATTEND Internal Medicine
PROC: B543ZZA Ultrasonography of Right Jugular Veins, Guidance (ICD-10-PCS; 2018-04-23)
PROC: 02HV33Z Insertion of Infusion Device into Superior Vena Cava, Percutaneous Approach (ICD-10-PCS; 2018-04-23)
PROC: 0DB38ZX Excision of Lower Esophagus, Via Natural or Artificial Opening Endoscopic, Diagnostic (ICD-10-PCS; principal; 2018-04-28 13:15)
DX: E10.10 Type 1 diabetes mellitus with ketoacidosis without coma (principal); B37.81 Candidal esophagitis; G93.41 Metabolic encephalopathy; D62 Acute posthemorrhagic anemia; E87.5 Hyperkalemia; R13.12 Dysphagia, oropharyngeal phase; R11.2 Nausea with vomiting, unspecified; R00.0 Tachycardia, unspecified; D72.829 Elevated white blood cell count, unspecified; E86.0 Dehydration; F17.210 Nicotine dependence, cigarettes, uncomplicated; K21.0 Gastro-esophageal reflux disease with esophagitis; Z59.0 Homelessness
CPT/HCPCS: 80305; 82435-PO; 82565-PO; 82947-PO; 84132-PO; 84295-PO; 84484-PO; 84520-PO; 85014-PO; 96374; G0008; G0009; G0378; G0480; J1450; J1650; J1815; J2405; J2704; J3480; Q9967

== ENCOUNTER 2018-06-05 16:01 | Inpatient (IN) | payer MEDICAID ==
--- NOTE | 2018-06-05 16:01 | EDPHY ---
H & P Time Seen by Provider: 06/05/18 16:03 HPI/ROS: CHIEF COMPLAINT: "I can't keep anything down" HISTORY OF PRESENT ILLNESS: 47-year-old male history of diabetes via ambulance complaining of intractable nausea, vomiting for the past 3 days, myalgias. Patient's prior history of similar with hospital admission in April for intractable nausea vomiting, DKA. No abdominal pain. No testicular pain. No fever or chills. No chest pain. No cough. No dyspnea. No medical evaluation or follow-up since last hospital admission PRIMARY CARE PROVIDER: REVIEW OF SYSTEMS: 10 systems reviewed and negative with the exception of the elements mentioned in the history of present illness PAST MEDICAL & SURGICAL HISTORY: Insulin-dependent diabetes. History of esophageal itis. SOCIAL HISTORY: Living in an [place] in the [facility] PHYSICAL EXAM (Prior to examination, patient consented to physical exam, hands were washed and my usual and customary physical exam procedures followed) 1) GENERAL: Well-developed, well-nourished, alert and oriented. Appears uncomfortable. 2) HEAD: Normocephalic, atraumatic 3) HEENT: Pupils equal, round, reactive to light bilaterally. Sclera anicteric. Nasopharynx, oropharynx, clear, no lesions. Dry mucous membranes. 4) NECK: Full range of motion, no meningeal signs. 5) LUNGS: Clear auscultation bilaterally, no wheezes, no rhonchi, no retractions. 6) HEART: Regular rate and rhythm, no murmur, no heave, no gallop. 7) ABDOMEN: No guarding, no rebound, no focal tenderness, negative McBurney's, negative Soriano's, negative Rovsing's, negative peritoneal sign, unable to elicit any abdominal pain on exam 8) MUSCULOSKELETAL: Moving all extremities, no focal areas of tenderness, no obvious trauma. No peripheral edema or discoloration. 9) BACK: No CVA tenderness, no midline vertebral tenderness, no fluctuance, no step-off, no obvious trauma, no visual or palpable abnormality. 10) SKIN: No rash, no petechiae. 11) Psychiatric: Patient is oriented X 3, there is no agitation. DIFFERENTIAL DIAGNOSIS: In no particular order including but not limited to acute pancreatitis, DKA, intractable nausea and vomiting, acute appendicitis Constitutional: Initial Vital Signs Temperature (C) 36.4 C 06/05/18 16:00 Heart Rate 135 H 06/05/18 16:00 Respiratory Rate 19 06/05/18 16:00 Blood Pressure 118/85 H 06/05/18 16:00 O2 Sat (%) 100 06/05/18 16:00 O2 Delivery Mode Room Air Allergies/Adverse Reactions: No Known Allergies Allergy (Verified 06/05/18 17:51) Home Medications: Medication Instructions Recorded Insulin Aspart [Novolog Flexpen] 10 - 25 unit SQ ACHS PRN 04/23/18 Insulin Detemir [Levemir Flextouch] 35 unit SQ BID 04/23/18 metFORMIN HCL [Metformin HCl] 1,000 mg PO BID 04/26/18 Medical Decision Making - Diagnostics Imaging Results: Imaging Impressions Chest X-Ray 06/05/18 16:29 Impression: 1. No active cardiopulmonary disease seen. ED Course/Re-evaluation: 4:12 p.m.: I reviewed the patient's old medical records. He has prior hospital admission for DKA, intractable nausea vomiting, he is homeless. He has not had any follow-up since his last hospital admission. Will initiate DKA protocol, IV fluids, administer antiemetic. Care of patient under supervision of secondary supervising physician Dr Grant Hernandez with whom I discussed case. 5:00 p.m.: Patient'sblood work was pre-hospital EMS. Will obtain repeat chemistry. Re-examined patient. Sleeping. 5:50 p.m.: Patient does have a patent peripheral IV however nursing staff informs me that he will necessitate larger bore IV or another peripheral IV which nursing staff has been unsuccessful at obtaining. I have ordered a PICC line. 6:00 p.m.: Consultation with hospitalist Dr. Fournier, admit to the ICU 6:02 p.m.: Re-evaluation, patient is sleeping, easily woken states that he is asymptomatic - Data Points Laboratory Results: Laboratory Results 06/05/18 16:10 06/05/18 17:00 06/05/18 06/05/18 06/05/18 17:00 17:00 16:30 WBC RBC Hgb Hct MCV MCH MCHC RDW Plt Count MPV Neut % (Auto) Lymph % (Auto) Harrison % (Auto) Eos % (Auto) Baso % (Auto) Nucleat RBC Rel Count Absolute Neuts (auto) Absolute Lymphs (auto) Absolute Monos (auto) Absolute Eos (auto) Absolute Basos (auto) Absolute Nucleated RBC Immature Gran % Immature Gran # Puncture Site VENOUS Patient Temperature 37.0 DEGREES DEGREES VBG pH 7.28 L (7.31-7.42) VBG HCO3 11 mEQ/L L mEQ/L (22-26) VBG Total CO2 12 mEq/L L mEq/L (21-27) VBG O2 Saturation 97 % H % (65-75) VBG Base Excess -14.1 mEq/L L mEq/L (-2.5-2.5) Mixed VBG pCO2 24 mmHg L mmHg (40-44) Mixed VBG pO2 105 mmHG H mmHG (35-40) Sodium 137 mEq/L mEq/L (135-145) Potassium 4.6 mEq/L mEq/L (3.3-5.0) Chloride 104 mEq/L mEq/L (97-110) Carbon Dioxide 11 mEq/l L mEq/l (22-31) Anion Gap 22 mEq/L H mEq/L (6-14) BUN 27 mg/dL H mg/dL (7-23) Creatinine 1.0 mg/dL mg/dL (0.7-1.3) Estimated GFR > 60 Glucose 207 mg/dL H mg/dL (70-100) Calcium 8.9 mg/dL mg/dL (8.5-10.4) Phosphorus Magnesium Total Bilirubin Conjugated Bilirubin Unconjugated Bilirubin AST ALT Alkaline Phosphatase Total Protein Albumin Lipase Beta-Hydroxybutyrate Nasal Influenza A PCR NEGATIVE FOR FLU A (NEGATIVE) Nasal Influenza B PCR NEGATIVE FOR FLU B (NEGATIVE) 06/05/18 06/05/18 06/05/18 16:10 16:10 16:10 WBC 22.60 10^3/uL H 10^3/uL (3.80-9.50) RBC 6.57 10^6/uL H 10^6/uL (4.40-6.38) Hgb 17.8 g/dL H g/dL (13.7-17.5) Hct 54.6 % H % (40.0-51.0) MCV 83.1 fL fL (81.5-99.8) MCH 27.1 pg L pg (27.9-34.1) MCHC 32.6 g/dL g/dL (32.4-36.7) RDW 13.8 % % (11.5-15.2) Plt Count 581 10^3/uL H 10^3/uL (150-400) MPV 9.4 fL fL (8.7-11.7) Neut % (Auto) 88.2 % H % (39.3-74.2) Lymph % (Auto) 7.0 % L % (15.0-45.0) Harrison % (Auto) 3.9 % L % (4.5-13.0) Eos % (Auto) 0.2 % L % (0.6-7.6) Baso % (Auto) 0.2 % L % (0.3-1.7) Nucleat RBC Rel Count 0.0 % % (0.0-0.2) Absolute Neuts (auto) 19.92 10^3/uL H 10^3/uL (1.70-6.50) Absolute Lymphs (auto) 1.59 10^3/uL 10^3/uL (1.00-3.00) Absolute Monos (auto) 0.89 10^3/uL H 10^3/uL (0.30-0.80) Absolute Eos (auto) 0.04 10^3/uL 10^3/uL (0.03-0.40) Absolute Basos (auto) 0.05 10^3/uL 10^3/uL (0.02-0.10) Absolute Nucleated RBC 0.00 10^3/uL 10^3/uL (0-0.01) Immature Gran % 0.5 % % (0.0-1.1) Immature Gran # 0.11 10^3/uL H 10^3/uL (0.00-0.10) Puncture Site NONE GIVEN Patient Temperature 37.0 DEGREES DEGREES VBG pH 7.26 L (7.31-7.42) VBG HCO3 14 mEQ/L L mEQ/L (22-26) VBG Total CO2 15 mEq/L L mEq/L (21-27) VBG O2 Saturation 73 % % (65-75) VBG Base Excess -11.9 mEq/L L mEq/L (-2.5-2.5) Mixed VBG pCO2 33 mmHg L mmHg (40-44) Mixed VBG pO2 44 mmHG H mmHG (35-40) Sodium 137 mEq/L mEq/L (135-145) Potassium 5.4 mEq/L H mEq/L (3.3-5.0) Chloride 98 mEq/L mEq/L (97-110) Carbon Dioxide 14 mEq/l L mEq/l (22-31) Anion Gap 25 mEq/L H mEq/L (6-14) BUN 28 mg/dL H mg/dL (7-23) Creatinine 1.3 mg/dL mg/dL (0.7-1.3) Estimated GFR 59 Glucose 183 mg/dL H mg/dL (70-100) Calcium 10.9 mg/dL H mg/dL (8.5-10.4) Phosphorus 4.4 mg/dL mg/dL (2.5-4.5) Magnesium 2.3 mg/dL mg/dL (1.6-2.3) Total Bilirubin 0.9 mg/dL mg/dL (0.1-1.4) Conjugated Bilirubin 0.5 mg/dL mg/dL (0.0-0.5) Unconjugated Bilirubin 0.4 mg/dL mg/dL (0.0-1.1) AST 21 IU/L IU/L (17-59) ALT 20 IU/L L IU/L (21-72) Alkaline Phosphatase 162 IU/L H IU/L (38-126) Total Protein 8.9 g/dL H g/dL (6.3-8.2) Albumin 5.3 g/dL H g/dL (3.5-5.0) Lipase 128 IU/L IU/L (23-300) Beta-Hydroxybutyrate 6.84 mmol/L H mmol/L (0.02-0.27) Nasal Influenza A PCR Nasal Influenza B PCR Medications Given: Sodium Chloride (Ns) 1,000 mls @ 1,000 mls/hr IV EDNOW ONE PRN Reason: Protocol Stop: 06/05/18 18:07 Last Admin: 06/05/18 17:17 Dose: 1,000 mls Discontinued Medications Sodium Chloride (Ns) 1,000 mls @ 1,000 mls/hr IV EDNOW ONE PRN Reason: Protocol Stop: 06/05/18 17:07 Last Admin: 06/05/18 16:12 Dose: 1,000 mls Ondansetron HCl (Zofran) 4 mg IVP EDNOW ONE Stop: 06/05/18 16:09 Last Admin: 06/05/18 16:20 Dose: 4 mg Departure - Departure
[2018-06-05] MEDS ORDERED: NS 1,000 ML IV ONE ×3 (16:08→19:00)
[2018-06-05] MEDS ORDERED: ONDANSETRON 4 MG/2 ML VIAL IVP ONE (16:08)
[2018-06-05 16:23] LABS: PLATELET COUNT 581 10^3/uL (150-400)
[2018-06-05] MEDS ORDERED: ALTEPLASE 2 MG VIAL IVP PRN (17:36)
[2018-06-05] MEDS ORDERED: D50W 25 GM/50 ML SYR IVP PRN ×2 (17:42→21:30)
[2018-06-05] MEDS ORDERED: INSULIN REGULAR HUMAN 100 UNIT, COSIGN. REQUIRED 1 EA in NS 100 ML IV ONE (17:42)
[2018-06-05] MEDS ORDERED: D10W 1,000 ML IV ONE (17:42)
[2018-06-05] MEDS ORDERED: POTASSIUM Cl (KCl) 10 MEQ/100 ML BAG IV ONE (18:21)
[2018-06-05] MEDS: POTASSIUM Cl (KCl) 100 ML IV SCH ×2 (18:34→20:47)
[2018-06-05] MEDS ORDERED: ONDANSETRON DISINTEGRATING 4 MG TAB PO PRN (19:29)
[2018-06-05] MEDS ORDERED: PROMETHAZINE HCL 25 MG/ML INJ IVP PRN (19:29)
[2018-06-05] MEDS ORDERED: HYDROmorphONE/DILAUDID 1 MG/ML INJ IVP PRN (19:29)
[2018-06-05] MEDS ORDERED: oxyCODONE IR 5 MG TAB PO PRN (19:29)
[2018-06-05] MEDS ORDERED: HYDROCODONE/APAP 5/325 TAB PO PRN (19:29)
[2018-06-05] MEDS ORDERED: ACETAMINOPHEN 325 MG TAB PO PRN (19:29)
[2018-06-05] MEDS ORDERED: ONDANSETRON 4 MG/2 ML VIAL IVP PRN (19:29)
[2018-06-05] MEDS ORDERED: NS 500 ML IV ONE ×2 (20:00→21:00)
[2018-06-05] MEDS ORDERED: RN:ENTER POTASSIUM ICU PROTOCOL ON WORKLIST MISC ONE (21:30)
[2018-06-05] MEDS ORDERED: D10W 1,000 ML IV SCH (21:30)
[2018-06-05] MEDS ORDERED: INSULIN REGULAR HUMAN 100 UNIT in NS 100 ML IV SCH (21:30)
[2018-06-05] MEDS ORDERED: PROTOCOL POTASSIUM 1 DOSE MISC PRN (21:33)
[2018-06-05] MEDS ORDERED: POTASSIUM Cl (KCl) 50 ML IV ONE (21:43)
[2018-06-05] MEDS ORDERED: NS 1,000 ML IV SCH ×2 (22:00)
--- NOTE | 2018-06-05 22:03 | PDGENHP ---
History and Physical - Chief Complaint nausea/vomiting - History of Present Illness 47 yo homeless M with hx of DM presenting with persistent n/v and DKA. Patient has had similar admissions in the past, including twice last month. At the time of my evaluation, patient is quite somnolent and giving only one or two word answers to questions and therefore much of this history is obtained by his GF or by chart review. Apparently patient had been feeling well until 2-3 days ago when he began to complain of nausea and body aches. No chest pain, sob, or fever noted. Unclear if he was taking his insulin during that time. At this time , no specific complaints other than fatigue. History Information - Allergies/Home Medication List Allergies/Adverse Reactions: No Known Allergies Allergy (Verified 06/05/18 17:51) Home Medications: Insulin Aspart [Novolog Flexpen] 10 - 25 unit SQ ACHS PRN 04/23/18 [Last Taken 06/04/18] Insulin Detemir [Levemir Flextouch] 35 unit SQ BID 04/23/18 [Last Taken 06/04/18 ] metFORMIN HCL [Metformin HCl] 1,000 mg PO BID 04/26/18 [Last Taken Unknown] I have personally reviewed and updated: family history, medical history, social history, surgical history - Past Medical History diabetes type 2 Additional medical history: IVDA - Surgical History Additional surgical history: Unable to obtain 2/2 AMS - Family History Additional family history: Unable to obtain 2/2 AMS - Social History Smoking Status: Former smoker Alcohol Use: Occasionally Drug Use: Other (IVDA including meth use) Additional social history: lives in with girlfriend, recently in snf Review of Systems Review of Systems: unobtainable 2/2 patients mental status Physical Exam Physical Exam: Temp Pulse Resp BP Pulse Ox 36.8 C 114 H 17 119/64 98 06/05/18 20:00 06/05/18 21:00 06/05/18 21:00 06/05/18 21:00 06/05/18 21:00 Constitutional: appears nourished, chronically ill appearing Eyes: PERRL, anicteric sclera Ears, Nose, Mouth, Throat: poor dentition, dry mucous membranes Cardiovascular: no murmur, rub, or gallop, tachycardia, No edema Respiratory: no respiratory distress, no rales or rhonchi Gastrointestinal: normoactive bowel sounds, soft, non-tender abdomen Genitourinary: no bladder tenderness Skin: warm, normal color Musculoskeletal: No asymmetric calves, No joint effusion Neurologic: CN II-XII Intact, No AAOx3 Psychiatric: poor memory, other (somnolent) Lab Data & Imaging Review 06/05/18 16:10 06/05/18 19:45 WBC 22.60 10^3/uL (3.80-9.50) H 06/05/18 16:10 RBC 6.57 10^6/uL (4.40-6.38) H 06/05/18 16:10 Hgb 17.8 g/dL (13.7-17.5) H 06/05/18 16:10 Hct 54.6 % (40.0-51.0) H 06/05/18 16:10 MCV 83.1 fL (81.5-99.8) 06/05/18 16:10 MCH 27.1 pg (27.9-34.1) L 06/05/18 16:10 MCHC 32.6 g/dL (32.4-36.7) 06/05/18 16:10 RDW 13.8 % (11.5-15.2) 06/05/18 16:10 Plt Count 581 10^3/uL (150-400) H 06/05/18 16:10 MPV 9.4 fL (8.7-11.7) 06/05/18 16:10 Neut % (Auto) 88.2 % (39.3-74.2) H 06/05/18 16:10 Lymph % (Auto) 7.0 % (15.0-45.0) L 06/05/18 16:10 [place] % (Auto) 3.9 % (4.5-13.0) L 06/05/18 16:10 Eos % (Auto) 0.2 % (0.6-7.6) L 06/05/18 16:10 Baso % (Auto) 0.2 % (0.3-1.7) L 06/05/18 16:10 Nucleat RBC Rel Count 0.0 % (0.0-0.2) 06/05/18 16:10 Absolute Neuts (auto) 19.92 10^3/uL (1.70-6.50) H 06/05/18 16:10 Absolute Lymphs (auto) 1.59 10^3/uL (1.00-3.00) 06/05/18 16:10 Absolute Monos (auto) 0.89 10^3/uL (0.30-0.80) H 06/05/18 16:10 Absolute Eos (auto) 0.04 10^3/uL (0.03-0.40) 06/05/18 16:10 Absolute Basos (auto) 0.05 10^3/uL (0.02-0.10) 06/05/18 16:10 Absolute Nucleated RBC 0.00 10^3/uL (0-0.01) 06/05/18 16:10 Immature Gran % 0.5 % (0.0-1.1) 06/05/18 16:10 Immature Gran # 0.11 10^3/uL (0.00-0.10) H 06/05/18 16:10 Puncture Site NONE GIVEN 06/05/18 18:05 Patient Temperature 37.0 DEGREES 06/05/18 18:05 VBG pH 7.27 (7.31-7.42) L 06/05/18 18:05 VBG HCO3 10 mEQ/L (22-26) L 06/05/18 18:05 VBG Total CO2 11 mEq/L (21-27) L 06/05/18 18:05 VBG O2 Saturation 97 % (65-75) H 06/05/18 18:05 VBG Base Excess -14.8 mEq/L (-2.5-2.5) L 06/05/18 18:05 VBG Lactic Acid 1.1 mmol/L (0.7-2.1) 06/05/18 18:05 Mixed VBG pCO2 23 mmHg (40-44) L 06/05/18 18:05 Mixed VBG pO2 96 mmHG (35-40) H 06/05/18 18:05 Sodium TNP 06/05/18 19:45 Potassium TNP 06/05/18 19:45 Chloride TNP 06/05/18 19:45 Carbon Dioxide TNP 06/05/18 19:45 Anion Gap TNP 06/05/18 19:45 BUN TNP 11/26/18 19:45 Creatinine TNP 06/05/18 19:45 Estimated GFR TNP 06/05/18 19:45 Glucose TNP 06/05/18 19:45 Calcium TNP 06/05/18 19:45 Phosphorus 4.4 mg/dL (2.5-4.5) 06/05/18 16:10 Magnesium 2.3 mg/dL (1.6-2.3) 06/05/18 16:10 Total Bilirubin 0.9 mg/dL (0.1-1.4) 06/05/18 16:10 Conjugated Bilirubin 0.5 mg/dL (0.0-0.5) 06/05/18 16:10 Unconjugated Bilirubin 0.4 mg/dL (0.0-1.1) 06/05/18 16:10 AST 21 IU/L (17-59) 06/05/18 16:10 ALT 20 IU/L (21-72) L 06/05/18 16:10 Alkaline Phosphatase 162 IU/L (38-126) H 06/05/18 16:10 POC Troponin I 0.00 ng/mL (0.00-0.08) 06/05/18 18:12 Total Protein 8.9 g/dL (6.3-8.2) H 06/05/18 16:10 Albumin 5.3 g/dL (3.5-5.0) H 06/05/18 16:10 Lipase 128 IU/L (23-300) 06/05/18 16:10 Beta-Hydroxybutyrate 3.75 mmol/L (0.02-0.27) H 06/05/18 19:45 Nasal Influenza A PCR NEGATIVE FOR FLU A (NEGATIVE) 06/05/18 16:30 Nasal Influenza B PCR NEGATIVE FOR FLU B (NEGATIVE) 06/05/18 16:30 Visualized and Interpreted Chest x-ray results: Yes Chest X-Ray results: no infiltrate Assessment & Plan Assessment: 47 yo M with hx of DM and IVDA presenting with n/v and dka as well as ams # DKA: now 3rd admission for the same in the last 2 months, ketones very high with glucose only in the 200s. Might be multifactorial. Started on DKA protocol and monitoring, gap still open currently # acute metabolic encephalopathy: in the setting of above as well as presumed intoxication or withdrawal--drug screen pending, GF admits to intermittent IV meth use but query other ingestion given above and mental status # phillip: improved with IVF, very dry on exam on arrival # erythrocytosis: suspect pseudoerythrocytosis related to volume depletion, monitoring h/h # polysubstance use: with hx of meth use/IVDA--monitoring, drug screen pending # leukocytosis: suspect largely due to hemoconcentration, will repeat in am # IP status, patient critically ill requiring ICU level care Patient new to my care. Old records reviewed and summarized as above. Care plan reviewed with ER doctor, further hx obtained from pts girlfriend present at bedside. > 35 min critical care time spent in review of labs/imaging, interpretation and creation of plan and review with other doctors.
[2018-06-06] MEDS: INSULIN GLARGINE 100 UNITS/ML UNIT SC SCH ×3 (01:06→20:04)
[2018-06-06] MEDS ORDERED: PROTOCOL POTASSIUM 1 DOSE MISC PRN (01:46)
[2018-06-06 06:27] LABS: PLATELET COUNT 265 10^3/uL (150-400)
[2018-06-06] MEDS ORDERED: POTASSIUM CL 10 MEQ TAB PO ONE ×2 (07:32→22:11)
[2018-06-06] MEDS ORDERED: FAMOTIDINE 20 MG/NACL 50 ML IV ONE (08:57)
[2018-06-06] MEDS ORDERED: PANTOPRAZOLE SODIUM 40 MG TAB PO SCH (09:00)
[2018-06-06] MEDS: ENOXAPARIN 40 MG/0.4 ML SYR SC SCH (09:01)
[2018-06-06] MEDS: INSULIN LISPRO 100 UNIT/ML SC SCH ×3 (09:02→18:01)
--- NOTE | 2018-06-06 09:03 | HOSPPROG ---
Hospitalist Progress Note Assessment/Plan: # DKA: suspect triggered by N/V 2/2 moderately severe esophagitis (per EGD 2017). Gap closed, back on SC insulin. Recent a1c 9.7 -cont basal / bolus insulin # metabolic acidosis: 2/2 above, still a bit acidemic -cont IVF's -recheck labs in am # mod-severe esophagitis - he has not been taking PPI or any medications for this. Fungal Cx neg. -resume BID PPI -IV pepcid now for symptom control -add carafate # metabolic encephalopathy: improved # phillip: improved with IVF # erythrocytosis / leukocytosis: this was likely hemoconcentration, improved with hydration # polysubstance use: with hx of meth use/IVDA--monitoring, drug screen neg # dispo: cont inpt, transfer to med/surg Patient new to my care. Old records reviewed and summarized as above. Subjective: Pt feels ok, he is moaning, c/o "heartburn". Notes he did not take the PPI as prescribed at hospital discharge last month. Girlfriend at bedside. They live in an RV. No fevers/chills. No vomiting overnight. Tolerating diet this am. Objective: Vital Signs Temp Pulse Resp BP Pulse Ox 36.6 C 87 14 126/69 H 97 06/06/18 07:31 06/06/18 07:31 06/06/18 07:31 06/06/18 07:31 06/06/18 07:31 Laboratory Results 06/06/18 06:00 06/06/18 05:05 06/05/18 06/06/18 06/07/18 05:59 05:59 05:59 Intake Total 7627 Output Total 0 550 Balance 7627 -550 - Physical Exam Constitutional: no apparent distress Eyes: PERRL Ears, Nose, Mouth, Throat: moist mucous membranes Cardiovascular: regular rate and rhythym Respiratory: no respiratory distress, clear to auscultation Gastrointestinal: normoactive bowel sounds, soft, non-tender abdomen Skin: warm Musculoskeletal: full muscle strength Neurologic: AAOx3 Psychiatric: interacting appropriately ICD10 Worksheet Patient Problems: Problems Problem Status Onset DKA (diabetic ketoacidoses) Acute Hyperglycemia due to type 1 diabetes mellitus Acute Vomiting Acute
[2018-06-06] MEDS: PANTOPRAZOLE SODIUM 40 MG TAB PO SCH ×2 (09:05→20:04)
[2018-06-06] MEDS: NS W/ 20 KCl/L 1,000 ML IV SCH ×2 (09:38→22:36)
--- NOTE | 2018-06-06 09:41 | ASMTCMCOM ---
CM Note CM Note Notes: Leonardo is a 47 yo male who presented to ED with DKA. He lives with his girlfriend, Nuris, in an RV. Pt has history of admissions for similar presentations within the last month. Unknown linkages in the community at this time. CM to follow. Date Signed: 06/06/2018 09:40 AM Electronically Signed By:Radha Cortes
--- NOTE | 2018-06-06 10:04 | PDMN ---
Medical Necessity Medical [place] [facility] [place] Diabetes: 47 yo w/ persistent n/v in DKA. 3rd admit w/in last 2 mo. s/sx include acute metabolic encephalopathy due to DKA and presumed drug intox or withdrawal, persistent tachy 110s-130s, pH 7.27, beta hydroxy 3.75, BG 500s on admit. IP status as pt critically ill requiring ICU level care. Hx IVDU, meth use, homeless
[2018-06-06] MEDS: SUCRALFATE 1 GM/10 ML UDCUP PO SCH ×3 (11:04→20:04)
--- NOTE | 2018-06-06 14:56 | ASMTCMCOM ---
CM Note CM Note Notes: GALO spoke with Lani from [facility] who reports pt is linked with [facility] and familiar with [facility] services. CM to follow. Date Signed: 06/06/2018 02:55 PM Electronically Signed By:MJ Dupree
[2018-06-07] MEDS ORDERED: D50W 25 GM/50 ML SYR IVP ONE (08:24)
[2018-06-07] MEDS: SUCRALFATE 1 GM/10 ML UDCUP PO SCH ×3 (08:36→15:57)
[2018-06-07] MEDS: PANTOPRAZOLE SODIUM 40 MG TAB PO SCH (08:37)
[2018-06-07] MEDS: ENOXAPARIN 40 MG/0.4 ML SYR SC SCH (08:38)
[2018-06-07] MEDS: INSULIN LISPRO 100 UNIT/ML SC SCH ×3 (08:43→15:57)
[2018-06-07] MEDS ORDERED: INSULIN GLARGINE 100 UNITS/ML UNIT SC SCH (09:00)
[2018-06-07] MEDS ORDERED: POTASSIUM CL 10 MEQ TAB PO ONE (09:00)
[2018-06-07 11:44] VITALS: BP 120/70
--- NOTE | 2018-06-07 16:29 | ASMTLACE ---
XAVIERE Length of stay for Answers: 2 days current admission Acuity / Level of Answers: Yes Care: Did the patient have an inpatient admission? Comorbidities - select Answers: Diabetes (uncontrolled or all that apply controlled) # of Emergency department Answers: 3-4 visits in the last 6 months Social determinants Answers: History of substance abuse (ETOH, street drugs, prescription drugs, etc.) Score: 12 Date Signed: 06/07/2018 04:29 PM Electronically Signed By:Radha Alfaro RN
--- NOTE | 2018-06-07 16:34 | ASMTCMCOM ---
CM Note CM Note Notes: Met with pt and girlfriend, pt states does not have money for prescription copays, CM sent rxs down to [facility] and filled out an Indigent patient form. Also gave pt bus pass, prescriptions delivered to pt, except for Glucagon kit, pt will need to pick that up at the [facility] on [address]. Pt will go to where he and his girlfriend live. DC Plan: Independent Date Signed: 06/07/2018 04:34 PM Electronically Signed By:Radha Alfaro RN
== END 2018-06-07 18:10 | disposition home or self-care (01) | DRG 420 ==
LOC: EDUNIT# → EDBD → OBSVTOIN 18:50 → F2N 18:53 → F3E 06-06 12:01
PROVIDERS: ADMIT Internal Medicine; ATTEND Hospitalist
PROC: 02HV33Z Insertion of Infusion Device into Superior Vena Cava, Percutaneous Approach (ICD-10-PCS; principal; 2018-06-05)
DX: E11.10 Type 2 diabetes mellitus with ketoacidosis without coma (principal); G93.41 Metabolic encephalopathy; N17.9 Acute kidney failure, unspecified; K20.9 Esophagitis, unspecified; Z79.4 Long term (current) use of insulin; Z59.0 Homelessness; Z23 Encounter for immunization
CPT/HCPCS: 80307; 83605-PO; 84484-PO; 96374; C1751; G0008; G0480; J1650; J1815; J2405; J3480